=== PATIENT | female | born 1945 | race Caucasian/White ===

== ENCOUNTER 2016-10-14 19:01 | Emergency (ER) | payer MEDICARE ==
[2016-10-14 19:24] VITALS: TEMP 98.1
--- NOTE | 2016-10-14 20:09 | C.PDOC ---
History Of Present Illness 71 y/o female presents to ED with c/o dizziness and nausea. Patient was seen in this ER on 10/02/16 and had a full negative workup including a negative CT scan. Patient reports difficulty walking due to lightheadedness and dizziness. Otherwise, denies fever, chills, or vomiting. Time Seen by Provider: 10/14/16 20:06 Chief Complaint (Nursing): Dizziness/Lightheaded History Per: Patient History/Exam Limitations: no limitations Onset/Duration Of Symptoms: Days Current Symptoms Are (Timing): Still Present Seizure Or Post-ictal Symptoms: None Fall Associated With With Symptoms: No Past Medical History Reviewed: Historical Data, Nursing Documentation, Vital Signs Vital Signs: Last Vital Signs Temp 98.1 F 10/14/16 19:20 Pulse 71 10/14/16 21:55 Resp 18 10/14/16 21:55 BP 170/80 H 10/14/16 21:55 Pulse Ox 100 10/14/16 21:55 - Medical History PMH: No Chronic Diseases Family History: States: No Known Family Hx - Social History Hx Alcohol Use: No Hx Substance Use: No - Immunization History Hx Tetanus Toxoid Vaccination: No Hx Influenza Vaccination: No Hx Pneumococcal Vaccination: No Review Of Systems Constitutional: Negative for: Fever, Chills Cardiovascular: Negative for: Chest Pain Respiratory: Negative for: Cough Gastrointestinal: Positive for: Nausea. Negative for: Vomiting Neurological: Positive for: Dizziness. Negative for: Headache Physical Exam - Physical Exam Appears: Non-toxic, No Acute Distress Skin: Warm, Dry Head: Normacephalic Eye(s): bilateral: Normal Inspection (no nystagmus) Ear(s): Bilateral: Normal Oral Mucosa: Moist Neck: Supple Chest: Symmetrical Cardiovascular: Rhythm Regular Respiratory: No Rales, No Rhonchi, No Wheezing Gastrointestinal/Abdominal: Soft, No Tenderness Extremity: Normal ROM, Capillary Refill (< 2 sec.) Neurological/Psych: Oriented x3, Normal Speech, Normal Cognition, No Romberg ED Course And Treatment - Laboratory Results Result Diagrams: 10/14/16 21:21 10/14/16 21:21 ECG: Interpreted By Me, Viewed By Me ECG Rhythm: Sinus Rhythm (72), Nonspecific Changes O2 Sat by Pulse Oximetry: 99 Pulse Ox Interpretation: Normal Reevaluation Time: 22:52 Reassessment Condition: Improved Disposition Counseled Patient/Family Regarding: Studies Performed, Diagnosis, Need For Followup, Rx Given - Disposition Referrals: [facility] [Outside] [facility] [Outside] Goyo Metcalf MD [Staff Provider] - Marco A Fontenot MD [Staff Provider] - Disposition: HOME/ ROUTINE Disposition Time: 20:09 Condition: FAIR Prescriptions: Meclizine [Meclizine*] 25 mg PO Q6 #30 tab Ondansetron ODT [Zofran ODT] 1 odt PO BID PRN #10 odt PRN Reason: Nausea/Vomiting Instructions: Dizziness (ED), Vertigo (ED) Print Language: COMORAN - Clinical Impression Clinical Impression: Dizziness - Scribe Statement The provider has reviewed the documentation as recorded by the Kevibkanchan Valdes Provider Attestation: Provider Scribe Attestation: All medical record entries made by the Scribe were at my direction and personally dictated by me. I have reviewed the chart and agree that the record accurately reflects my personal performance of the history, physical exam, medical decision making, and the department course for this patient. I have also personally directed, reviewed, and agree with the discharge instructions and disposition.
[2016-10-14] MEDS ORDERED: Sodium Chloride 0.9% 500 ML IV ONE (21:16)
[2016-10-14 21:24] LABS: BASO % 0.2 % (0.0-2.0); EOS # 0.1 K/uL (0.0-0.7); EOS % 0.7 % (0.0-4.0); HEMATOCRIT 41.1 % (34.0-47.0); LYMPH # 1.1 K/uL (1.0-4.3); LYMPH % 12.4 % (20.0-40.0); MEAN CELL VOLUME 96.3 fL (81.0-99.0); MEAN CORPUSCULAR HEMOGLOBIN 32.5 pg (27.0-31.0); MEAN CORPUSCULAR HGB CONC 33.7 g/dL (33.0-37.0); MEAN PLATELET VOLUME 8.5 fL (7.2-11.7); MONO # 0.9 K/uL (0.0-0.8); MONO % 9.9 % (0.0-10.0); RED CELL DISTRIBUTION WIDTH 12.7 % (11.5-14.5); WHITE BLOOD COUNT 8.6 K/uL (4.8-10.8)
[2016-10-14 21:33] LABS: RBC URINE 9 /hpf (0-3); URINE BACTERIA RARE (<OCC); URINE BILIRUBIN NEGATIVE (NEGATIVE); URINE COLOR Yellow (YELLOW); URINE GLUCOSE (UA) NORMAL (Normal); URINE KETONE NEGATIVE (NEGATIVE); URINE PROTEIN NEGATIVE (NEGATIVE); URINE UROBILINOGEN NORMAL mg/dL (0.2-1.0); WBC URINE 5 /hpf (0-5)
[2016-10-14 21:34] LABS: CHLORIDE 101 mmol/L (98-107); SODIUM 142 mmol/L (132-148); URINE BLOOD TRACE (NEGATIVE); URINE LEUKOCYTE ESTERASE TRACE Leu/uL (Negative)
[2016-10-14 21:35] LABS: POTASSIUM 3.5 mmol/L (3.6-5.2)
[2016-10-14 21:37] LABS: ALB/GLOB RATIO 1.3 (1.0-2.1); ALKALINE PHOSPHATASE 99 U/L (38-126); AST/SGOT 28 U/L (14-36); BILIRUBIN,TOTAL 0.6 mg/dL (0.2-1.3); BLOOD UREA NITROGEN 10 mg/dL (7-17); CARBON DIOXIDE 25 mmol/L (22-30); GFR AFRICAN-AMERICAN > 60; GLUCOSE,RANDOM 106 mg/dL (65-105); TOTAL PROTEIN 7.4 g/dL (6.3-8.3)
[2016-10-14 21:38] LABS: ALT/SGPT 16 U/L (9-52); MAGNESIUM 1.9 mg/dL (1.6-2.3)
[2016-10-14 21:39] LABS: INR 1.1
[2016-10-14 21:55] VITALS: BP 170/80; PULSE 71; RESP 18
[2016-10-14 22:55] VITALS: O2SAT 99
== END 2016-10-14 22:55 | disposition home or self-care (01) ==
LOC: C.ER 19:01
DX: R42 Dizziness and giddiness (principal)
CPT/HCPCS: 80053; 81001; 83735; 85025; 85610; 85730; 96360; 99285; J7040

== ENCOUNTER 2018-11-22 18:27 | Inpatient (IN) | payer MEDICARE ==
[2018-11-22 18:37] VITALS: BMI 28.1
[2018-11-22] MEDS ORDERED: Sodium Chloride 0.9% 1,000 ML IV ONE (19:19)
--- NOTE | 2018-11-22 19:19 | C.PDOC ---
History Of Present Illness Patient presents to the ED c/o sudden onset RUQ abdominal pain associated with some nausea. Patient states pain is sharp, stabbing, non radiating. Patient denies fever, chills, diarrhea, rash, dysuria, hematuria, weakness, numbness. Time Seen by Provider: 11/22/18 19:19 Chief Complaint (Nursing): Abdominal Pain History Per: Patient Onset/Duration Of Symptoms: Sudden Onset Current Symptoms Are (Timing): Still Present Context: Other Severity: Severe Pain Scale Rating Of: 7 Location Of Pain/Discomfort: RUQ, Epigastric Radiation Of Pain To:: None Quality Of Discomfort: Sharp, Stabbing Associated Symptoms: Nausea. denies: Vomiting, Diarrhea, Urinary Symptoms Alleviating Factors: None Last Bowel Movement: Today Recent travel outside of the [place]: No Additional History Per: Patient Abnormal Vaginal Bleeding: No Past Medical History Reviewed: Historical Data, Nursing Documentation, Vital Signs Vital Signs: Last Vital Signs Temp 98.8 F 11/22/18 18:37 Pulse 90 11/22/18 18:37 Resp 18 11/22/18 18:37 BP 114/70 11/22/18 18:37 Pulse Ox 100 11/22/18 18:37 - Medical History PMH: No Chronic Diseases Surgical History: No Surg Hx Family History: States: Unknown Family Hx - Social History Hx Alcohol Use: No Hx Substance Use: No - Immunization History Hx Tetanus Toxoid Vaccination: No Hx Influenza Vaccination: No Hx Pneumococcal Vaccination: No Review Of Systems Constitutional: Negative for: Fever, Chills Cardiovascular: Negative for: Chest Pain Respiratory: Negative for: Shortness of Breath Gastrointestinal: Positive for: Nausea, Abdominal Pain. Negative for: Vomiting, Diarrhea Genitourinary: Negative for: Dysuria Musculoskeletal: Negative for: Back Pain Skin: Negative for: Rash Neurological: Negative for: Weakness, Numbness Physical Exam - Physical Exam Appears: Non-toxic, No Acute Distress Skin: Warm, Dry Head: Normacephalic Eye(s): bilateral: Normal Inspection Oral Mucosa: Moist Neck: Supple Chest: Symmetrical Cardiovascular: Rhythm Regular Respiratory: No Rales, No Rhonchi, No Wheezing Gastrointestinal/Abdominal: Soft, Tenderness (RUQ), No Guarding, No Rebound Back: No CVA Tenderness Extremity: No Tenderness Extremity: Bilateral: Atraumatic, Normal Color And Temperature, Normal ROM Pulses: Left Dorsalis Pedis: Normal, Right Dorsalis Pedis: Normal Neurological/Psych: Oriented x3, Normal Speech, Normal Cognition Gait: Steady ED Course And Treatment - Laboratory Results Result Diagrams: 11/22/18 19:34 11/22/18 19:34 ECG: Interpreted By Me, Viewed By Me O2 Sat by Pulse Oximetry: 100 (ON RA) Pulse Ox Interpretation: Normal - CT Scan/US CT abd/pelvis Other Rad Studies (CT/US): Read By Radiologist, Radiology Report Reviewed CT/US Interpretation: EXAM: CT Abdomen and Pelvis with IV contrast. CLINICAL HISTORY: Ruq pain. TECHNIQUE: Axial computed tomography images of the abdomen and pelvis with intravenous contrast. 0.00 mGy-cm. CONTRAST: With; OMNI 300/100ML. COMPARISON: None provided. FINDINGS: LUNG BASES: The lung bases appear clear. No pleural effusions are seen. LIVER: Unremarkable. GALLBLADDER AND BILE DUCTS: The gallbladder appears prominent in size. There is subtle pericholecystic edema present. These findings are suspicious for acalculous cholecystitis. No radioopaque gallstones are seen. No biliary ductal dilatation is evident. PANCREAS: Unremarkable. SPLEEN: Unremarkable. ADRENAL GLANDS: Unremarkable. KIDNEYS, URETERS, AND BLADDER: The kidneys appear within normal limits. A small 1.3 cm cyst arises from the anterior mid right renal pole. There is no hydronephrosis or hydroureter. No urinary calculi are seen. The urinary bladder appeared normal in size and configuration. STOMACH AND BOWEL: Unremarkable appearance of the stomach. No evidence of bowel obstruction. No evidence suggesting enteritis or colitis. There is diverticulosis coli noted; most prevalent in the lower descending, sigmoid and rectosigmoid regions without evidence of acute diverticulitis. APPENDIX: No evidence of acute appendicitis on CT examination. PERITONEUM: No free fluid. No free air. LYMPH NODES: No lymphadenopathy is evident. REPRODUCTIVE: Postmenopausal uterine atrophy is noted. Otherwise, unremarkable as visualized. VASCULATURE: No evidence of abdominal aortic aneurysm. Moderate atherosclerotic vascular plaquing is present. BONES: No aggressive appearing osseous lesion. No acute osseous pathology evident. There is evidence of degenerative disc disease at L5-S1. There is retrograde spondylolisthesis of L5 in relationship to L4 noted by an estimated 7.0 mm. IMPRESSION: 1. Prominent size of the gallbladder with subtle pericholecystic edema suggesting acute acalculous cholecystitis. 2. Diverticulosis coli noted without evidence of acute diverticulitis. 3. Degene rative disc disease at L5-S1. 4. Retrograde spondylolisthesis of L5 in relationship to L4 as described above. . Electronically signed on Nov 22, 2018 9:11:57 PM EDT by: Jeet Torres M.D., M.B.A., Certified By ABR. Fellowship Trained MRI and CT Specialist. due to her serious condition pt will need at least 2 days of in patient hospitalization Progress Note: Plan: - EKG. - Labs. - IV fluids. - protonix 40 mg IVP. - Toradol 15 mg IVP. - Zofran 4 mg IVP. - UA. spoke with surgery - will come and see the pt Disposition Discussed With Dr.: Rosa James Comment: accepted the pt on his service and took over the care at 9:25 PM Counseled Patient/Family Regarding: Studies Performed, Diagnosis - Disposition Disposition: HOSPITALIZED Disposition Time: 19:19 Condition: FAIR Forms: [employer] (Portuguese) - Clinical Impression Clinical Impression: Nausea, Abdominal pain, Acute pancreatitis, Acute acalculous cholecystitis - Scribe Statement The provider has reviewed the documentation as recorded by the Scribe Federico Arauz All medical record entries made by the Scribe were at my direction and personally dictated by me. I have reviewed the chart and agree that the record accurately reflects my personal performance of the history, physical exam, medical decision making, and the department course for this patient. I have also personally directed, reviewed, and agree with the discharge instructions and disposition. Decision To Admit - Pt Status Changed To: Hospital Disposition Of: Inpatient - Admit Certification Admit to Inpatient:: After my assessment, the patient will require hospitalization for at least two midnights. This is because of the severity of symptoms shown, intensity of services needed, and/or the medical risk in this patient being treated as an outpatient. - InPatient: Physician Admission Certification:: After my assessment, the patient will require hospitalization for at least two midnights. This is because of the severity of symptoms shown, intensity of services needed, and/or the medical risk in this patient being treated as an outpatient. - . Bed Request Type: Regular Admitting Physician: Rosa James Patient Diagnosis: Acute pancreatitis, Acute acalculous cholecystitis, Nausea, Abdominal pain
[2018-11-22 19:37] LABS: BASO % 0.2 % (0.0-2.0); HEMOGLOBIN 13.6 g/dL (11.0-16.0); LYMPH # 0.2 K/uL (1.0-4.3); LYMPH % 1.5 % (20.0-40.0); MEAN CELL VOLUME 97.1 fL (81.0-99.0); MONO # 0.8 K/uL (0.0-0.8); MONO % 5.1 % (0.0-10.0); NEUT % 93.2 % (50.0-75.0); PLATELET COUNT 236 K/uL (130-400); RBC 4.13 Mil/uL (3.80-5.20); RED CELL DISTRIBUTION WIDTH 13.4 % (11.5-14.5); WHITE BLOOD COUNT 16.1 K/uL (4.8-10.8)
[2018-11-22 19:46] LABS: INR 1.3; PROTHROMBIN TIME 14.2 SECONDS (9.7-12.2)
[2018-11-22] MEDS ORDERED: Piperacillin/Tazobact 3.375 gm 100 ML IVPB STA (19:46)
[2018-11-22 19:47] LABS: SQUAMOUS EPITHIAL 3 /hpf (0-5); URINE BACTERIA OCC (<OCC); URINE BILIRUBIN 2+ (NEGATIVE); URINE BLOOD 1+ (NEGATIVE); URINE CLARITY Clear (Clear); URINE COLOR Amber (YELLOW); URINE GLUCOSE (UA) NORMAL (Normal); URINE LEUKOCYTE ESTERASE NEG Leu/uL (Negative); URINE PROTEIN NEGATIVE (NEGATIVE)
[2018-11-22 19:49] LABS: ALB/GLOB RATIO 1.5 (1.0-2.1); ALBUMIN 4.2 g/dL (3.5-5.0); ALT/SGPT 169 U/L (9-52); AST/SGOT 248 U/L (14-36); BLOOD UREA NITROGEN 11 mg/dL (7-17); CALCIUM 9.4 mg/dl (8.6-10.4); GFR NON-AFRICAN AMERICAN > 60
[2018-11-22] MEDS ORDERED: Sodium Chloride 0.9% 1,000 ML ONE (19:56)
[2018-11-22 20:08] LABS: LIPASE 11425 U/L (23-300)
[2018-11-22] MEDS ORDERED: Iohexol 300 100 ML IJ ONE (20:08)
[2018-11-22] MEDS ORDERED: Piperacillin/Tazobact 3.375 gm 100 ML IVPB ONE (20:59)
[2018-11-22] MEDS ORDERED: Dextrose 5%/0.45% NS 1,000 ML IV ONE (21:24)
[2018-11-22 21:56] LABS: BANDS 5 % (0-2); LYMPHOCYTE 2 % (20-40); MONOCYTE 2 % (0-10); NEUTROPHIL 91 % (50-75); PLATELET ESTIMATE NORMAL (NORMAL); TOTAL CELLS COUNTED 100
[2018-11-22] MEDS ORDERED: Lactated Ringer's 1,000 ML IV ONE (23:02)
--- NOTE | 2018-11-23 00:18 | CP.PCM.CON ---
<Ethan Butler - Last Filed: 11/23/18 00:20> History of Present Illness - History of Present Illness History of Present Illness: Surgery Consult Note- Dr. Scherer Reason for Consult: Acute Cholecystitis, Pancreatitis 73F pmhx significant for hypotensive episodes, does not take medications at home presents to [facility] ED w/ Mid-Epigastric to RUQ abdominal pain for 1 day. Associated nausea, multiple episodes of non-bloody, non-bilious vomiting. Patient admits to having similar pain the the past initially started 2 years ago. Pain is worsened w/ fatty and [employer] foods. Denies: fevers, chills, chest pain, shortness of breath PMH: Stated above PSH: deneis ALL: nkda SocialHx: denies tobacco, etoh recreational drug use Review of Systems - Review of Systems All systems: reviewed and no additional remarkable complaints except - Constitutional Constitutional: As Per HPI Past Patient History - Infectious Disease Hx of Infectious Diseases: None - Past Social History Smoking Status: Never Smoked - CARDIAC Hx Hypotension: Yes - PSYCHIATRIC Hx Substance Use: No - SURGICAL HISTORY Hx Surgeries: No - ANESTHESIA Hx Anesthesia: No Hx Anesthesia Reactions: No Meds Allergies/Adverse Reactions: Allergies Allergy/AdvReac Type Severity Reaction Status Date / Time No Known Allergies Allergy Verified 06/28/15 15:33 - Medications Medications: Current Medications Dextrose/Sodium Chloride (Dextrose 5%/0.45% Ns 1000 Ml) 1,000 mls @ 200 mls/hr IV .Q5H ONE Stop: 11/23/18 02:23 Last Admin: 11/22/18 21:37 Dose: 200 mls/hr Lactated Ringer's (Lactated Ringer's) 1,000 mls @ 200 mls/hr IV .Q5H ONE Stop: 11/23/18 04:01 Piperacillin Sod/Tazobactam Sod (Zosyn 3.375 Gm Iv Premix) 3.375 gm in 50 mls @ 100 mls/hr IVPB Q6H LILIANA; Protocol Physical Exam - Constitutional Appears: Non-toxic, No Acute Distress - Head Exam Head Exam: ATRAUMATIC - Eye Exam Eye Exam: EOMI. absent: Scleral icterus - ENT Exam ENT Exam: Mucous Membranes Moist - Respiratory Exam Respiratory Exam: NORMAL BREATHING PATTERN. absent: Accessory Muscle Use, Respiratory Distress - Cardiovascular Exam Cardiovascular Exam: absent: Bradycardia, Tachycardia, +S1, +S2 - GI/Abdominal Exam GI & Abdominal Exam: Soft, Tenderness (tenderness to deep palpation in mid- epigastrum and RUQ) - Extremities Exam Extremities exam: Negative for: calf tenderness - Neurological Exam Neurological exam: Alert, Oriented x3 - Psychiatric Exam Psychiatric exam: Normal Affect - Skin Skin Exam: Intact, Warm Results - Vital Signs Recent Vital Signs: Last Vital Signs Temp 98.2 F 11/23/18 00:07 Pulse 92 H 11/23/18 00:07 Resp 20 11/23/18 00:07 BP 97/55 L 11/23/18 00:07 Pulse Ox 95 11/23/18 00:07 - Labs Result Diagrams: 11/22/18 19:34 11/22/18 19:34 Labs: Laboratory Results - last 24 hr 11/22/18 11/22/18 11/22/18 19:34 19:34 19:34 WBC 16.1 H D RBC 4.13 Hgb 13.6 Hct 40.1 MCV 97.1 MCH 33.0 H MCHC 34.0 RDW 13.4 Plt Count 236 MPV 8.0 Neut % (Auto) 93.2 H Lymph % (Auto) 1.5 L [place] % (Auto) 5.1 Eos % (Auto) 0.0 Baso % (Auto) 0.2 Neut # (Auto) 15.0 H Lymph # (Auto) 0.2 L [place] # (Auto) 0.8 Eos # (Auto) 0.0 Baso # (Auto) 0.0 Neutrophils % (Manual) 91 H Band Neutrophils % 5 H Lymphocytes % (Manual) 2 L Monocytes % (Manual) 2 Platelet Estimate Normal PT 14.2 H INR 1.3 APTT 31.0 Sodium 137 Potassium 4.2 Chloride 102 Carbon Dioxide 27 Anion Gap 12 BUN 11 Creatinine 0.7 Est GFR ( Amer) > 60 Est GFR (Non-Af Amer) > 60 Random Glucose 139 H D Calcium 9.4 Total Bilirubin 4.9 H AST 248 H ALT 169 H D Alkaline Phosphatase 217 H Total Protein 6.9 Albumin 4.2 Globulin 2.7 Albumin/Globulin Ratio 1.5 Lipase 58698 H Urine Color Urine Clarity Urine pH Ur Specific [place] Urine Protein Urine Glucose (UA) Urine Ketones Urine Blood Urine Nitrate Urine Bilirubin Urine Urobilinogen Ur Leukocyte Esterase Urine WBC (Auto) Urine RBC (Auto) Ur Squamous Epith Cells Urine Bacteria 11/22/18 19:41 WBC RBC Hgb Hct MCV MCH MCHC RDW Plt Count MPV Neut % (Auto) Lymph % (Auto) [place] % (Auto) Eos % (Auto) Baso % (Auto) Neut # (Auto) Lymph # (Auto) [place] # (Auto) Eos # (Auto) Baso # (Auto) Neutrophils % (Manual) Band Neutrophils % Lymphocytes % (Manual) Monocytes % (Manual) Platelet Estimate PT INR APTT Sodium Potassium Chloride Carbon Dioxide Anion Gap BUN Creatinine Est GFR ( Amer) Est GFR (Non-Af Amer) Random Glucose Calcium Total Bilirubin AST ALT Alkaline Phosphatase Total Protein Albumin Globulin Albumin/Globulin Ratio Lipase Urine Color [place] Urine Clarity Clear Urine pH 6.0 Ur Specific [place] 1.021 Urine Protein Negative Urine Glucose (UA) Normal Urine Ketones Negative Urine Blood 1+ H Urine Nitrate Positive H Urine Bilirubin 2+ H Urine Urobilinogen 4.0 H Ur Leukocyte Esterase Neg Urine WBC (Auto) 3 Urine RBC (Auto) 37 H Ur Squamous Epith Cells 3 Urine Bacteria Occ H Assessment & Plan - Assessment and Plan (Free Text) Assessment: 73F w/ Gallstone pancreatitis Plan: - NPO - Aggressive IVF - pain control PRN - f/u AM imaging and labs including MRCP - Plan for OR vs [facility] - d/w Dr. Monet Butler pgy2 <Fortino Richardson - Last Filed: 11/23/18 15:02> Meds - Medications Medications: Current Medications Piperacillin Sod/Tazobactam Sod (Zosyn 3.375 Gm Iv Premix) 3.375 gm in 50 mls @ 100 mls/hr IVPB Q6H LILIANA; Protocol Last Admin: 11/23/18 14:28 Dose: 100 mls/hr Lactated Ringer's (Lactated Ringer's) 1,000 mls @ 200 mls/hr IV .Q5H LILIANA Last Admin: 11/23/18 10:57 Dose: Not Given Ketorolac Tromethamine (Toradol) 15 mg IVP Q6 PRN PRN Reason: Pain, moderate (4-7) Last Admin: 11/23/18 13:12 Dose: 15 mg Pneumococcal Polyvalent Vaccine (Pneumovax 23 Vaccine) 0.5 ml IM .ONCE ONE Stop: 11/25/18 10:01 Results - Vital Signs Recent Vital Signs: Last Vital Signs Temp 98.3 F 11/23/18 07:00 Pulse 78 11/23/18 07:00 Resp 20 11/23/18 07:00 BP 106/58 L 11/23/18 07:00 Pulse Ox 97 11/23/18 07:00 - Labs Result Diagrams: 11/23/18 07:07 11/23/18 07:07 Labs: Laboratory Results - last 24 hr 11/22/18 11/22/18 11/22/18 19:34 19:34 19:34 WBC 16.1 H D RBC 4.13 Hgb 13.6 Hct 40.1 MCV 97.1 MCH 33.0 H MCHC 34.0 RDW 13.4 Plt Count 236 MPV 8.0 Neut % (Auto) 93.2 H Lymph % (Auto) 1.5 L [place] % (Auto) 5.1 Eos % (Auto) 0.0 Baso % (Auto) 0.2 Neut # (Auto) 15.0 H Lymph # (Auto) 0.2 L [place] # (Auto) 0.8 Eos # (Auto) 0.0 Baso # (Auto) 0.0 Neutrophils % (Manual) 91 H Band Neutrophils % 5 H Lymphocytes % (Manual) 2 L Monocytes % (Manual) 2 Platelet Estimate Normal Hypochromasia (manual) Poikilocytosis (manual Anisocytosis (manual) PT 14.2 H INR 1.3 APTT 31.0 Puncture Site pCO2 pO2 HCO3 ABG pH ABG Total CO2 ABG O2 Saturation ABG Base Excess Ranulfo Test ABG Potassium A-a O2 Difference Respiratory Index Glucose Lactate FiO2 Sodium 137 Potassium 4.2 Chloride 102 Carbon Dioxide 27 Anion Gap 12 BUN 11 Creatinine 0.7 Est GFR ( Amer) > 60 Est GFR (Non-Af Amer) > 60 Random Glucose 139 H D Calcium 9.4 Total Bilirubin 4.9 H AST 248 H ALT 169 H D Alkaline Phosphatase 217 H Total Protein 6.9 Albumin 4.2 Globulin 2.7 Albumin/Globulin Ratio 1.5 Lipase 46310 H Arterial Blood Potassium Urine Color Urine Clarity Urine pH Ur Specific [place] Urine Protein Urine Glucose (UA) Urine Ketones Urine Blood Urine Nitrate Urine Bilirubin Urine Urobilinogen Ur Leukocyte Esterase Urine WBC (Auto) Urine RBC (Auto) Ur Squamous Epith Cells Urine Bacteria Blood Type Antibody Screen 11/22/18 11/23/18 11/23/18 19:41 02:10 07:07 WBC 10.4 RBC 3.39 L Hgb 11.5 D Hct 32.9 L MCV 96.9 MCH 33.8 H MCHC 34.9 RDW 13.0 Plt Count 173 MPV 8.2 Neut % (Auto) 87.7 H Lymph % (Auto) 5.0 L [place] % (Auto) 7.1 Eos % (Auto) 0.1 Baso % (Auto) 0.1 Neut # (Auto) 9.1 H Lymph # (Auto) 0.5 L [place] # (Auto) 0.7 Eos # (Auto) 0.0 Baso # (Auto) 0.0 Neutrophils % (Manual) 83 H Band Neutrophils % 3 H Lymphocytes % (Manual) 8 L Monocytes % (Manual) 6 Platelet Estimate Normal Hypochromasia (manual) Slight Poikilocytosis (manual Slight Anisocytosis (manual) Slight PT INR APTT Puncture Site Rr pCO2 33 L pO2 81 HCO3 23.1 ABG pH 7.42 ABG Total CO2 22.4 ABG O2 Saturation 98.3 H ABG Base Excess -2.3 L Ranulfo Test Pos ABG Potassium 3.3 L A-a O2 Difference 27.0 Respiratory Index 0.3 Glucose 112 H Lactate 1.1 FiO2 21.0 Sodium 137.0 Potassium Chloride 106.0 Carbon Dioxide Anion Gap BUN Creatinine Est GFR ( Amer) Est GFR (Non-Af Amer) Random Glucose Calcium Total Bilirubin AST ALT Alkaline Phosphatase Total Protein Albumin Globulin Albumin/Globulin Ratio Lipase Arterial Blood Potassium 3.3 L Urine Color [place] Urine Clarity Clear Urine pH 6.0 Ur Specific [place] 1.021 Urine Protein Negative Urine Glucose (UA) Normal Urine Ketones Negative Urine Blood 1+ H Urine Nitrate Positive H Urine Bilirubin 2+ H Urine Urobilinogen 4.0 H Ur Leukocyte Esterase Neg Urine WBC (Auto) 3 Urine RBC (Auto) 37 H Ur Squamous Epith Cells 3 Urine Bacteria Occ H Blood Type Antibody Screen 11/23/18 11/23/18 11/23/18 07:07 07:07 14:25 WBC RBC Hgb Hct MCV MCH MCHC RDW Plt Count MPV Neut % (Auto) Lymph % (Auto) [place] % (Auto) Eos % (Auto) Baso % (Auto) Neut # (Auto) Lymph # (Auto) [place] # (Auto) Eos # (Auto) Baso # (Auto) Neutrophils % (Manual) Band Neutrophils % Lymphocytes % (Manual) Monocytes % (Manual) Platelet Estimate Hypochromasia (manual) Poikilocytosis (manual Anisocytosis (manual) PT INR APTT Puncture Site Lb pCO2 31 L pO2 74 L HCO3 23.2 ABG pH 7.44 ABG Total CO2 22.1 ABG O2 Saturation 97.1 ABG Base Excess -2.1 L Ran[place]fo Test Na ABG Potassium 3.1 L A-a O2 Difference 37.0 Respiratory Index 0.5 Glucose 81 Lactate 0.8 FiO2 21.0 Sodium 136 137.0 Potassium 3.5 L Chloride 106 110.0 H Carbon Dioxide 23 Anion Gap 10 BUN 12 Creatinine 0.8 Est GFR ( Amer) > 60 Est GFR (Non-Af Amer) > 60 Random Glucose 109 H D Calcium 8.4 L Total Bilirubin 6.2 H AST 145 H D ALT 125 H D Alkaline Phosphatase 177 H Total Protein 5.3 L Albumin 3.0 L D Globulin 2.3 Albumin/Globulin Ratio 1.3 Lipase Arterial Blood Potassium 3.1 L Urine Color Urine Clarity Urine pH Ur Specific [place] Urine Protein Urine Glucose (UA) Urine Ketones Urine Blood Urine Nitrate Urine Bilirubin Urine Urobilinogen Ur Leukocyte Esterase Urine WBC (Auto) Urine RBC (Auto) Ur Squamous Epith Cells Urine Bacteria Blood Type O POSITIVE Antibody Screen Negative Assessment & Plan - Assessment and Plan (Free Text) Plan: All medical record entries made by the resident were at my direction. I have reviewed the chart and agree that the record accurately reflects my personal performance of the history, physical exam, and medical decision making. Ms Flor has acute cholecystits, pancreatitis and biliary obstruction, with a WBC of 16. On CT scan, her gallbladder is markedly distended with wall thickening. Given her pancreatitis and biliary obstruction, she would benefit from decompression of her gallbladder. Depending on the severity of her pancreatits, will determine if she will benefit from ERCP.
[2018-11-23 02:16] LABS: ABG ALLEN TEST POS; ARTERIAL BLOOD GAS HCO3 23.1 mmol/L (21-28); ARTERIAL BLOOD GAS O2 SAT 98.3 % (95-98); ARTERIAL BLOOD GAS PCO2 33 mm/Hg (35-45); ARTERIAL BLOOD GAS PH 7.42 (7.35-7.45); ARTERIAL BLOOD GAS PO2 81 mm/Hg (80-100); ARTERIAL BLOOD GAS TCO2 22.4 mmol/L (22-28)
[2018-11-23] MEDS: Piperacill/Tazo 3.375gm in Dex 3.375 GM/50 ML BAG IVPB SCH ×4 (03:18→14:28)
[2018-11-23] MEDS: Lactated Ringer's 1,000 ML IV SCH ×4 (06:53→21:27)
[2018-11-23 07:17] LABS: BASO % 0.1 % (0.0-2.0); LYMPH # 0.5 K/uL (1.0-4.3); MEAN CORPUSCULAR HEMOGLOBIN 33.8 pg (27.0-31.0); MEAN PLATELET VOLUME 8.2 fL (7.2-11.7); RBC 3.39 Mil/uL (3.80-5.20)
[2018-11-23 07:24] LABS: EOS % 0.1 % (0.0-4.0); MEAN CELL VOLUME 96.9 fL (81.0-99.0); MEAN CORPUSCULAR HGB CONC 34.9 g/dL (33.0-37.0); MONO # 0.7 K/uL (0.0-0.8); MONO % 7.1 % (0.0-10.0); NEUT # 9.1 K/uL (1.8-7.0); NEUT % 87.7 % (50.0-75.0); PLATELET COUNT 173 K/uL (130-400); WHITE BLOOD COUNT 10.4 K/uL (4.8-10.8)
[2018-11-23 07:26] LABS: HEMOGLOBIN 11.5 g/dL (11.0-16.0)
[2018-11-23 07:35] LABS: ALB/GLOB RATIO 1.3 (1.0-2.1); ALT/SGPT 125 U/L (9-52); AST/SGOT 145 U/L (14-36); BLOOD UREA NITROGEN 12 mg/dL (7-17); CALCIUM 8.4 mg/dl (8.6-10.4); GFR NON-AFRICAN AMERICAN > 60
--- NOTE | 2018-11-23 08:58 | RAD ---
Date of service: 11/23/2018 HISTORY: Pre-Op COMPARISON: No prior. TECHNIQUE: Chest PA and lateral views FINDINGS: LUNGS: No consolidation bilaterally. Small nodular density under 1 cm appreciate the medial right apex as dense if not slightly more dense than bone compatible with calcified granuloma. PLEURA: No significant pleural effusion identified. No pneumothorax apparent. CARDIOVASCULAR: No aortic atherosclerotic calcification present. Cardiac size upper limits of normal. No pulmonary vascular congestion. OSSEOUS STRUCTURES: No significant abnormalities. VISUALIZED UPPER ABDOMEN: Elevated right hemidiaphragm, etiology indeterminate. OTHER FINDINGS: None. IMPRESSION: Elevated right hemidiaphragm of indeterminate etiology. No acute consolidation, pleural effusion or pneumothorax bilaterally. Medial right apical calcified granuloma noted. No pulmonary vascular congestion.
[2018-11-23] MEDS ORDERED: Gadodiamide 287 MG/ML VIAL (15ML) IV ONE (09:11)
--- NOTE | 2018-11-23 09:38 | CT ---
CT abdomen and pelvis HISTORY: Right upper quadrant abdominal pain. COMPARISON: None available. TECHNIQUE: Multiple contiguous axial images were performed through the abdomen and pelvis with the use of intravenous contrast. Subsequently, sagittal and coronal reformatted images were obtained. This CT exam was performed using one or more of the following dose reduction techniques: Automated exposure control, adjustment of the mA and/or kV according to patient size, and/or use of iterative reconstruction technique. Findings: Punctate 1-2 millimeter ground-glass nodules seen within the right lung on series 2, images 6 and 7. Minimal scattered atelectasis at the lung bases. No pleural or pericardial effusion. Mild intrahepatic biliary ductal dilatation. No pleural or pericardial effusion. Prominently distended gallbladder with associated gallbladder wall thickening and possible mild gallbladder wall edema. Prominent common bile duct measuring up to 5.6 millimeters. Spleen is preserved. Adrenal glands are preserved. Heterogeneity at the head of the pancreas, nonspecific. Upper abdominal bowel is grossly preserved. Right kidney: Midpole 1.6 centimeter low-attenuation right renal lesion demonstrating a Hounsfield unit attenuation of 12 suggestive for a possible cyst. Correlation with multiphasic contrast enhanced CT or MR may be helpful for further evaluation if clinically indicated. Left Kidney: No calculi or hydronephrosis. Urinary bladder is underdistended but otherwise grossly preserved. Uterus is preserved. Colonic diverticulosis with prominent diverticuli noted at the level of the sigmoid colon. Under distended portions of the ascending transverse and descending colon. Appendix is visualized and is within normal limits. Few shotty lymph nodes noted within the right upper quadrant of the abdominal mesentery. Atherosclerotic calcification and plaque in the aorta. Few shotty para-aortic and inguinal lymph nodes. Few shotty mesenteric nodes. Degenerative changes in the spine. Anterolisthesis of L4 on L5. Impression: 1. Prominently distended gallbladder with a suggestion of possible gallbladder wall thickening and or edema. This may represent an acute acalculous cholecystitis. Further evaluation with right upper quadrant abdominal ultrasound and/or nuclear medicine HIDA scan may be helpful if clinically indicated. 2. Colonic diverticulosis. Scattered areas of underdistention of the colon as described above. 3. Heterogeneity at the head of the pancreas, nonspecific. Clinical correlation. 4. Midpole 1.6 centimeter low-attenuation right renal lesion demonstrating a Hounsfield unit attenuation of 12 suggestive for a possible cyst. Correlation with multiphasic contrast enhanced CT or MR may be helpful for further evaluation if clinically indicated. Additional findings as above. A preliminary report was generated at 9:11 p.m. on 11/22/[address] Jeet Torres from [employer].
[2018-11-23 10:00] LABS: BANDS 3 % (0-2); LYMPHOCYTE 8 % (20-40); MONOCYTE 6 % (0-10); NEUTROPHIL 83 % (50-75); PLATELET ESTIMATE NORMAL (NORMAL); TOTAL CELLS COUNTED 100
[2018-11-23 10:01] LABS: ANISOCYTOSIS SLIGHT; HYPOCHROMIC SLIGHT; POIKILOCYTOSIS SLIGHT
--- NOTE | 2018-11-23 10:07 | US ---
Right upper quadrant abdominal ultrasound HISTORY: Right upper quadrant abdominal pain. COMPARISON: CT scan dated 11/22/2018 TECHNIQUE: Real-time sonography was performed through the right upper quadrant of the abdomen. Findings: Liver: 10.7 centimeters in length. Increased echogenicity of the hepatic parenchymal cortex suggestive for fatty infiltration versus hepatic parenchymal disease. Clinical correlation. Gallbladder: Cholelithiasis and sludge in the gallbladder. Normal wall thickness of 2.2 millimeters. No gross wall edema. Negative sonographic Edwards's sign. Common bile duct measures 5.8 millimeters, within normal limits. Limited visualization of the pancreas. Visualized aorta and IVC are grossly preserved. Right kidney: 9.1 x 4.6 x 4.8 centimeters. No calculi or hydronephrosis. Midpole hypoechoic cyst measuring 1.2 x 1.2 x 1.4 centimeters. Impression: 1. Gallbladder appears distended with associated cholelithiasis and sludge. No gross wall thickening or edema. Negative sonographic Edwards's sign. These findings may represent an atypical acute or chronic cholecystitis. If clinically indicated, this could be further evaluated with nuclear medicine HIDA scan. Clinical correlation. 2. Increased echogenicity of the hepatic parenchymal cortex suggestive for fatty infiltration versus hepatic parenchymal disease. Clinical correlation. 3. Limited visualization of the pancreas. 4. 1.4 centimeter right renal cyst/cystic lesion. A preliminary report was generated at 12:05 a.m. on 11/23/[address] Juan Manuel Mares from [employer].
[2018-11-23] MEDS ORDERED: Midazolam 2 MG/2 ML VIAL ONE (10:29)
--- NOTE | 2018-11-23 10:46 | PCM.SURG1 ---
Surgeon's Initial Post Op Note - Surgeon's Notes Surgeon: Mehran Pearce MD Obstetric Assistant: NONE Type of Anesthesia: Moderate Sedation{RN} Pre-Operative Diagnosis: Cholecystitis Operative Findings: Distended GB, sludge Post-Operative Diagnosis: Cholecystitis Operation Performed: US guided perc. cholecystostomy tube placement Specimen/Specimens Removed: 20 cc of bile Estimated Blood Loss: EBL {In ML}: 1 Blood Products Given: N/A Drains Used: Devon Tran Post-Op Condition: Fair Date of Surgery/Procedure: 11/23/18 Time of Surgery/Procedure: 10:45
--- NOTE | 2018-11-23 11:44 | CP.PCM.CON ---
<Sherif Guevara - Last Filed: 11/23/18 14:49> History of Present Illness - History of Present Illness History of Present Illness: GI Fellow PGY4, consult note. Lorene Flor is a very pleasant 73F from [facility] who presented with acute abdominal pain, nausea, vomiting. Patient states the pain was RUQ and epigastric, severe, sharp and started ~4am yesterday. The pain was initially 10/ 10 but now the pain very mild. She is avoiding foods. Patient states she had a similar attack 3 years ago in [facility] and was hospitalized. She was told she had gallstones at that time. She is otherwise healthy. On admission, patient had low fever, soft blood pressure and elevated WBC. She had evidence of cholestaisis on liver tests. U/S showed sludge and possible gallstones. PMHx - gallstones PSHx - none. No endoscopies. FMHx - Denies GI related cancers SocHx - Denies tobacco, alcohol. 12pt ROS completed and negative except for as above. Past Patient History - Infectious Disease Hx of Infectious Diseases: None - Past Medical History & Family History Past Medical History?: Yes - Past Social History Smoking Status: Never Smoked - CARDIAC Hx Hypotension: Yes - PULMONARY Hx Respiratory Disorders: No - NEUROLOGICAL Hx Neurological Disorder: No - HEENT Hx HEENT Problems: No - RENAL Hx Chronic Kidney Disease: No - ENDOCRINE/METABOLIC Hx Endocrine Disorders: No - HEMATOLOGICAL/ONCOLOGICAL Hx Blood Disorders: No - INTEGUMENTARY Hx Dermatological Problems: No - MUSCULOSKELETAL/RHEUMATOLOGICAL Hx Musculoskeletal Disorders: No Hx Falls: No - GASTROINTESTINAL Hx Gastrointestinal Disorders: No - GENITOURINARY/GYNECOLOGICAL Hx Genitourinary Disorders: No - PSYCHIATRIC Hx Substance Use: No - SURGICAL HISTORY Hx Surgeries: No - ANESTHESIA Hx Anesthesia: No Hx Anesthesia Reactions: No Meds Allergies/Adverse Reactions: Allergies Allergy/AdvReac Type Severity Reaction Status Date / Time No Known Allergies Allergy Verified 06/28/15 15:33 - Medications Medications: Current Medications Piperacillin Sod/Tazobactam Sod (Zosyn 3.375 Gm Iv Premix) 3.375 gm in 50 mls @ 100 mls/hr IVPB Q6H [facility]; Protocol Last Admin: 11/23/18 11:16 Dose: 100 mls/hr Lactated Ringer's (Lactated Ringer's) 1,000 mls @ 200 mls/hr IV .Q5H [facility] Last Admin: 11/23/18 10:57 Dose: Not Given Pneumococcal Polyvalent Vaccine (Pneumovax 23 Vaccine) 0.5 ml IM .ONCE ONE Stop: 11/25/18 10:01 Physical Exam - Constitutional Appears: Non-toxic, No Acute Distress - Head Exam Head Exam: ATRAUMATIC, NORMAL INSPECTION - ENT Exam ENT Exam: Mucous Membranes Moist, Normal Exam - Respiratory Exam Respiratory Exam: Clear to Auscultation Bilateral, NORMAL BREATHING PATTERN - Cardiovascular Exam Cardiovascular Exam: REGULAR RHYTHM, +S1, +S2 - GI/Abdominal Exam GI & Abdominal Exam: Hypoactive Bowel Sounds, Soft, Tenderness. absent: Distended, Guarding, Organomegaly Additional comments: Mild tender. Negative murphys signs. - Extremities Exam Extremities exam: Positive for: normal inspection. Negative for: pedal edema - Neurological Exam Neurological exam: Alert, CN II-XII Intact, Oriented x3 - Skin Skin Exam: Dry, Warm Results - Vital Signs Recent Vital Signs: Last Vital Signs Temp 98.3 F 11/23/18 07:00 Pulse 78 11/23/18 07:00 Resp 20 11/23/18 07:00 BP 106/58 L 11/23/18 07:00 Pulse Ox 97 11/23/18 07:00 - Labs Result Diagrams: 11/23/18 07:07 11/23/18 07:07 Labs: Laboratory Results - last 24 hr 11/22/18 11/22/18 11/22/18 19:34 19:34 19:34 WBC 16.1 H D RBC 4.13 Hgb 13.6 Hct 40.1 MCV 97.1 MCH 33.0 H MCHC 34.0 RDW 13.4 Plt Count 236 MPV 8.0 Neut % (Auto) 93.2 H Lymph % (Auto) 1.5 L [place] % (Auto) 5.1 Eos % (Auto) 0.0 Baso % (Auto) 0.2 Neut # (Auto) 15.0 H Lymph # (Auto) 0.2 L [place] # (Auto) 0.8 Eos # (Auto) 0.0 Baso # (Auto) 0.0 Neutrophils % (Manual) 91 H Band Neutrophils % 5 H Lymphocytes % (Manual) 2 L Monocytes % (Manual) 2 Platelet Estimate Normal Hypochromasia (manual) Poikilocytosis (manual Anisocytosis (manual) PT 14.2 H INR 1.3 APTT 31.0 Puncture Site pCO2 pO2 HCO3 ABG pH ABG Total CO2 ABG O2 Saturation ABG Base Excess Ranulfo Test ABG Potassium A-a O2 Difference Respiratory Index Glucose Lactate FiO2 Sodium 137 Potassium 4.2 Chloride 102 Carbon Dioxide 27 Anion Gap 12 BUN 11 Creatinine 0.7 Est GFR ( Amer) > 60 Est GFR (Non-Af Amer) > 60 Random Glucose 139 H D Calcium 9.4 Total Bilirubin 4.9 H AST 248 H ALT 169 H D Alkaline Phosphatase 217 H Total Protein 6.9 Albumin 4.2 Globulin 2.7 Albumin/Globulin Ratio 1.5 Lipase 24350 H Arterial Blood Potassium Urine Color Urine Clarity Urine pH Ur Specific Hawkins Urine Protein Urine Glucose (UA) Urine Ketones Urine Blood Urine Nitrate Urine Bilirubin Urine Urobilinogen Ur Leukocyte Esterase Urine WBC (Auto) Urine RBC (Auto) Ur Squamous Epith Cells Urine Bacteria Blood Type Antibody Screen 11/22/18 11/23/18 11/23/18 19:41 02:10 07:07 WBC 10.4 RBC 3.39 L Hgb 11.5 D Hct 32.9 L MCV 96.9 MCH 33.8 H MCHC 34.9 RDW 13.0 Plt Count 173 MPV 8.2 Neut % (Auto) 87.7 H Lymph % (Auto) 5.0 L [place] % (Auto) 7.1 Eos % (Auto) 0.1 Baso % (Auto) 0.1 Neut # (Auto) 9.1 H Lymph # (Auto) 0.5 L [place] # (Auto) 0.7 Eos # (Auto) 0.0 Baso # (Auto) 0.0 Neutrophils % (Manual) 83 H Band Neutrophils % 3 H Lymphocytes % (Manual) 8 L Monocytes % (Manual) 6 Platelet Estimate Normal Hypochromasia (manual) Slight Poikilocytosis (manual Slight Anisocytosis (manual) Slight PT INR APTT Puncture Site Rr pCO2 33 L pO2 81 HCO3 23.1 ABG pH 7.42 ABG Total CO2 22.4 ABG O2 Saturation 98.3 H ABG Base Excess -2.3 L Ranulfo Test Pos ABG Potassium 3.3 L A-a O2 Difference 27.0 Respiratory Index 0.3 Glucose 112 H Lactate 1.1 FiO2 21.0 Sodium 137.0 Potassium Chloride 106.0 Carbon Dioxide Anion Gap BUN Creatinine Est GFR ( Amer) Est GFR (Non-Af Amer) Random Glucose Calcium Total Bilirubin AST ALT Alkaline Phosphatase Total Protein Albumin Globulin Albumin/Globulin Ratio Lipase Arterial Blood Potassium 3.3 L Urine Color [place] Urine Clarity Clear Urine pH 6.0 Ur Specific Hawkins 1.021 Urine Protein Negative Urine Glucose (UA) Normal Urine Ketones Negative Urine Blood 1+ H Urine Nitrate Positive H Urine Bilirubin 2+ H Urine Urobilinogen 4.0 H Ur Leukocyte Esterase Neg Urine WBC (Auto) 3 Urine RBC (Auto) 37 H Ur Squamous Epith Cells 3 Urine Bacteria Occ H Blood Type Antibody Screen 11/23/18 11/23/18 07:07 07:07 WBC RBC Hgb Hct MCV MCH MCHC RDW Plt Count MPV Neut % (Auto) Lymph % (Auto) [place] % (Auto) Eos % (Auto) Baso % (Auto) Neut # (Auto) Lymph # (Auto) [place] # (Auto) Eos # (Auto) Baso # (Auto) Neutrophils % (Manual) Band Neutrophils % Lymphocytes % (Manual) Monocytes % (Manual) Platelet Estimate Hypochromasia (manual) Poikilocytosis (manual Anisocytosis (manual) PT INR APTT Puncture Site pCO2 pO2 HCO3 ABG pH ABG Total CO2 ABG O2 Saturation ABG Base Excess Ranulfo Test ABG Potassium A-a O2 Difference Respiratory Index Glucose Lactate FiO2 Sodium 136 Potassium 3.5 L Chloride 106 Carbon Dioxide 23 Anion Gap 10 BUN 12 Creatinine 0.8 Est GFR ( Amer) > 60 Est GFR (Non-Af Amer) > 60 Random Glucose 109 H D Calcium 8.4 L Total Bilirubin 6.2 H AST 145 H D ALT 125 H D Alkaline Phosphatase 177 H Total Protein 5.3 L Albumin 3.0 L D Globulin 2.3 Albumin/Globulin Ratio 1.3 Lipase Arterial Blood Potassium Urine Color Urine Clarity Urine pH Ur Specific Hawkins Urine Protein Urine Glucose (UA) Urine Ketones Urine Blood Urine Nitrate Urine Bilirubin Urine Urobilinogen Ur Leukocyte Esterase Urine WBC (Auto) Urine RBC (Auto) Ur Squamous Epith Cells Urine Bacteria Blood Type O POSITIVE Antibody Screen Negative Assessment & Plan - Assessment and Plan (Free Text) Assessment: #Acute gallstone pancreatitis PLAN: -CT, U/S reviewed. GB is distended with sludge and gallstones. CBD is normal, 0.6. -s/p perc cholecystostomy tube 11/23/18 -T. bili elevated this AM -MRI/MRCP results PENDING -Patient will likely benefit from EUS/ERCP followed by estrellita majano on this admission. Will hold off until MRCP/MRI results return. -Her risk of recurrence is high if gallbladder not removed and this was explained to the patient. -Urgent ERCP was considered earlier as she was having symptoms of sepsis, however she is doing well clinically at this time after fluid resuscitation and broad Abx. -NPO -Follow up surgical recs. -IVFs currently continuous LR at 200cc/hr. Continue to monitor and reduce as clinically indicated. Case discussed with Dr. Mora, see attestation. - Date & Time Date: 11/23/18 Time: 11:46 <Wilder Mora - Last Filed: 11/23/18 18:46> Meds - Medications Medications: Current Medications Lactated Ringer's (Lactated Ringer's) 1,000 mls @ 200 mls/hr IV .Q5H [facility] Last Admin: 11/23/18 10:57 Dose: Not Given Piperacillin Sod/Tazobactam Sod (Zosyn 2.25 Gm Iv Premix) 2.25 gm in 50 mls @ 100 mls/hr IVPB Q6H [facility]; Protocol Ketorolac Tromethamine (Toradol) 15 mg IVP Q6 PRN PRN Reason: Pain, moderate (4-7) Last Admin: 11/23/18 13:12 Dose: 15 mg Pneumococcal Polyvalent Vaccine (Pneumovax 23 Vaccine) 0.5 ml IM .ONCE ONE Stop: 11/25/18 10:01 Results - Vital Signs Recent Vital Signs: Last Vital Signs Temp 99.4 F 11/23/18 15:15 Pulse 96 H 11/23/18 15:15 Resp 20 11/23/18 15:15 BP 111/71 11/23/18 15:15 Pulse Ox 93 L 11/23/18 15:15 - Labs Result Diagrams: 11/23/18 07:07 11/23/18 07:07 Labs: Laboratory Results - last 24 hr 11/22/18 11/22/18 11/22/18 19:34 19:34 19:34 WBC 16.1 H D RBC 4.13 Hgb 13.6 Hct 40.1 MCV 97.1 MCH 33.0 H MCHC 34.0 RDW 13.4 Plt Count 236 MPV 8.0 Neut % (Auto) 93.2 H Lymph % (Auto) 1.5 L [place] % (Auto) 5.1 Eos % (Auto) 0.0 Baso % (Auto) 0.2 Neut # (Auto) 15.0 H Lymph # (Auto) 0.2 L [place] # (Auto) 0.8 Eos # (Auto) 0.0 Baso # (Auto) 0.0 Neutrophils % (Manual) 91 H Band Neutrophils % 5 H Lymphocytes % (Manual) 2 L Monocytes % (Manual) 2 Platelet Estimate Normal Hypochromasia (manual) Poikilocytosis (manual Anisocytosis (manual) PT 14.2 H INR 1.3 APTT 31.0 Puncture Site pCO2 pO2 HCO3 ABG pH ABG Total CO2 ABG O2 Saturation ABG Base Excess Ranulfo Test ABG Potassium A-a O2 Difference Respiratory Index Glucose Lactate FiO2 Sodium 137 Potassium 4.2 Chloride 102 Carbon Dioxide 27 Anion Gap 12 BUN 11 Creatinine 0.7 Est GFR ( Amer) > 60 Est GFR (Non-Af Amer) > 60 Random Glucose 139 H D Calcium 9.4 Total Bilirubin 4.9 H AST 248 H ALT 169 H D Alkaline Phosphatase 217 H Total Protein 6.9 Albumin 4.2 Globulin 2.7 Albumin/Globulin Ratio 1.5 Lipase 01674 H Arterial Blood Potassium Urine Color Urine Clarity Urine pH Ur Specific Hawkins Urine Protein Urine Glucose (UA) Urine Ketones Urine Blood Urine Nitrate Urine Bilirubin Urine Urobilinogen Ur Leukocyte Esterase Urine WBC (Auto) Urine RBC (Auto) Ur Squamous Epith Cells Urine Bacteria Blood Type Antibody Screen 11/22/18 11/23/18 11/23/18 19:41 02:10 07:07 WBC 10.4 RBC 3.39 L Hgb 11.5 D Hct 32.9 L MCV 96.9 MCH 33.8 H MCHC 34.9 RDW 13.0 Plt Count 173 MPV 8.2 Neut % (Auto) 87.7 H Lymph % (Auto) 5.0 L [place] % (Auto) 7.1 Eos % (Auto) 0.1 Baso % (Auto) 0.1 Neut # (Auto) 9.1 H Lymph # (Auto) 0.5 L [place] # (Auto) 0.7 Eos # (Auto) 0.0 Baso # (Auto) 0.0 Neutrophils % (Manual) 83 H Band Neutrophils % 3 H Lymphocytes % (Manual) 8 L Monocytes % (Manual) 6 Platelet Estimate Normal Hypochromasia (manual) Slight Poikilocytosis (manual Slight Anisocytosis (manual) Slight PT INR APTT Puncture Site Rr pCO2 33 L pO2 81 HCO3 23.1 ABG pH 7.42 ABG Total CO2 22.4 ABG O2 Saturation 98.3 H ABG Base Excess -2.3 L Ranulfo Test Pos ABG Potassium 3.3 L A-a O2 Difference 27.0 Respiratory Index 0.3 Glucose 112 H Lactate 1.1 FiO2 21.0 Sodium 137.0 Potassium Chloride 106.0 Carbon Dioxide Anion Gap BUN Creatinine Est GFR ( Amer) Est GFR (Non-Af Amer) Random Glucose Calcium Total Bilirubin AST ALT Alkaline Phosphatase Total Protein Albumin Globulin Albumin/Globulin Ratio Lipase Arterial Blood Potassium 3.3 L Urine Color [place] Urine Clarity Clear Urine pH 6.0 Ur Specific Hawkins 1.021 Urine Protein Negative Urine Glucose (UA) Normal Urine Ketones Negative Urine Blood 1+ H Urine Nitrate Positive H Urine Bilirubin 2+ H Urine Urobilinogen 4.0 H Ur Leukocyte Esterase Neg Urine WBC (Auto) 3 Urine RBC (Auto) 37 H Ur Squamous Epith Cells 3 Urine Bacteria Occ H Blood Type Antibody Screen 11/23/18 11/23/18 11/23/18 07:07 07:07 14:25 WBC RBC Hgb Hct MCV MCH MCHC RDW Plt Count MPV Neut % (Auto) Lymph % (Auto) [place] % (Auto) Eos % (Auto) Baso % (Auto) Neut # (Auto) Lymph # (Auto) [place] # (Auto) Eos # (Auto) Baso # (Auto) Neutrophils % (Manual) Band Neutrophils % Lymphocytes % (Manual) Monocytes % (Manual) Platelet Estimate Hypochromasia (manual) Poikilocytosis (manual Anisocytosis (manual) PT INR APTT Puncture Site Lb pCO2 31 L pO2 74 L HCO3 23.2 ABG pH 7.44 ABG Total CO2 22.1 ABG O2 Saturation 97.1 ABG Base Excess -2.1 L Ranulfo Test Na ABG Potassium 3.1 L A-a O2 Difference 37.0 Respiratory Index 0.5 Glucose 81 Lactate 0.8 FiO2 21.0 Sodium 136 137.0 Potassium 3.5 L Chloride 106 110.0 H Carbon Dioxide 23 Anion Gap 10 BUN 12 Creatinine 0.8 Est GFR ( Amer) > 60 Est GFR (Non-Af Amer) > 60 Random Glucose 109 H D Calcium 8.4 L Total Bilirubin 6.2 H AST 145 H D ALT 125 H D Alkaline Phosphatase 177 H Total Protein 5.3 L Albumin 3.0 L D Globulin 2.3 Albumin/Globulin Ratio 1.3 Lipase Arterial Blood Potassium 3.1 L Urine Color Urine Clarity Urine pH Ur Specific Hawkins Urine Protein Urine Glucose (UA) Urine Ketones Urine Blood Urine Nitrate Urine Bilirubin Urine Urobilinogen Ur Leukocyte Esterase Urine WBC (Auto) Urine RBC (Auto) Ur Squamous Epith Cells Urine Bacteria Blood Type O POSITIVE Antibody Screen Negative Attending/Attestation - Attestation I have personally seen and examined this patient.: Yes I have fully participated in the care of the patient.: Yes I have reviewed all pertinent clinical information: Yes Notes (Text): 11/23/18 18:42 I have seen and examined patient with GI fellow. Agree with above documentation with the following additions. In brief, this is a 73 year old female with history of cholelithiasis who presents to hospital with complaint of sudden onset abdominal pain which started yesterday. Prior to this she was in usual state of health. She reports sharp epigastric pain, 10/10 intensity radiating to RUQ and was associated with nausea and non-bloody emesis. She reports a similar episode 3 years ago in [facility] which was attributed to gallstones. She otherwise denies fever/chills, weight loss, rectal bleeding, jaundice, pruritis, or change in bowel habits. No prior endoscopic evaluation. Cholelithiasis Abdominal pain Gallstone pancreatitis Acute cholecystitis Transaminitis - NPO - Continue with antibiotic therapy - MRCP imaging reviewed by me showing normal caliber CBD, thickened GB wall - Follow up blood cultures - Patient s/p PTC drain placement as requested by surgical team, follow up recommendations - Continue to monitor LFTs - Continue with IVF hydration therapy, supportive care - Patient will eventually require cholecystectomy, currently no planned GI intervention, will continue to monitor patient clinical course
--- NOTE | 2018-11-23 12:08 | MRI ---
Date of service: 11/23/2018 PROCEDURE: Magnetic Resonance Cholangiopancreatography HISTORY: COMPARISON: None available. TECHNIQUE: Multiplanar, multisequence MR images of the abdomen were obtained, including heavily T2 weighted MRCP images of the biliary system. Rotating maximum intensity projection images of the biliary system were generated. FINDINGS: MRCP: The common bile duct is of a normal caliber. No evidence of choledocholithiasis. No intrahepatic biliary ductal dilatation. LIVER: Unremarkable. GALLBLADDER: Diffusely thickened wall. No yeny pericholecystic fluid. No evidence of cholelithiasis. SPLEEN: Unremarkable. PANCREAS: No mass or ductal dilatation. There is trace fluid/edema seen about the pancreatic head suggesting possible focal pancreatitis. Correlate clinically. ADRENALS: Unremarkable. KIDNEYS: 12 mm mid right renal cortical cyst. No other mass identified. No hydronephrosis. AORTA: No aneurysm. ASCITES: Trace fluid about the liver common nonspecific. No generalized ascites. OTHER FINDINGS: None. IMPRESSION: Possible focal pancreatitis of the pancreatic head. Nonspecific mural thickening of the gallbladder. No evidence of biliary obstruction. No evidence of choledocholithiasis.
[2018-11-23 14:28] LABS: ARTERIAL BLOOD GAS HCO3 23.2 mmol/L (21-28); ARTERIAL BLOOD GAS O2 SAT 97.1 % (95-98); ARTERIAL BLOOD GAS PCO2 31 mm/Hg (35-45); ARTERIAL BLOOD GAS PH 7.44 (7.35-7.45); ARTERIAL BLOOD GAS PO2 74 mm/Hg (80-100); ARTERIAL BLOOD GAS TCO2 22.1 mmol/L (22-28)
--- NOTE | 2018-11-23 18:30 | CARD ---
APPROVED REPORT Date of service: 11/22/2018 EKG Measurement Heart [id number] ID [id number] <Conclusion> Sinus tachycardia Otherwise normal ECG
[2018-11-23] MEDS: Piperacill/Tazo 2.25gm in Dex 2.25 GM/50 ML BAG IVPB SCH (21:28)
--- NOTE | 2018-11-24 02:27 | HP ---
HISTORY OF PRESENT ILLNESS: This is a 73-year-old female with no significant past medical history, not on any medication, presented to emergency room with upper abdominal pain associated with nausea and vomiting. Pain has been progressive over the last two days prior to admission. The patient was evaluated in the emergency room, and she was found to have white blood cell count of 16,000, lipase of 11,425 and total bilirubin of 4.9 and elevated liver enzymes 248 and 169. After the patient was evaluated in the emergency room, the patient was admitted for further management. The patient denied to have any similar episode before. Denied to drink alcohol. Other review of systems is negative. ALLERGIES: NO KNOWN ALLERGY. MEDICATIONS: None. PAST MEDICAL HISTORY: None significant. SOCIAL HISTORY: No history of smoking, EtOH or substance abuse. FAMILY HISTORY: Not contributory. PHYSICAL EXAMINATION: GENERAL: The patient is in bed, not in any cardiopulmonary distress. VITAL SIGNS: With a blood pressure of 106/58, temperature 98.3, respiratory rate 20 and pulse 78. HEENT: Pupils equal and reactive to light. Normal-appearing mucosa of the conjunctivae, oropharynx and nasal membrane mucosa. NECK: Supple. No JVD. No carotid bruit. No lymph node. No thyromegaly. CHEST AND LUNGS: Bilateral symmetrical expansion. Good air exchange. No rales. No rhonchi. CARDIOVASCULAR SYSTEM: PMI not localized. S1 and S2. No additional sounds. ABDOMEN: Normoactive bowel sounds. Positive tenderness in the epigastric area. No rebound tenderness. No organomegaly. No masses. EXTREMITIES: No cyanosis. No clubbing. No edema. CENTRAL NERVOUS SYSTEM: Alert, awake, oriented x2. No neurological deficits could be appreciated. LABORATORY DATA: Blood work again showed total bilirubin of 4.9 that went up to 6.2 and elevated lipase. ASSESSMENT: Acute pancreatitis, likely hepatocellular jaundice secondary to calculous cholecystitis. PLAN: Abdominal ultrasound. GI consult. Surgical consult. We will start the patient on Rocephin to treat urinary tract infection with positive nitrite. Rosa James MD
[2018-11-24] MEDS: Piperacill/Tazo 2.25gm in Dex 2.25 GM/50 ML BAG IVPB SCH (02:34)
[2018-11-24] MEDS: Lactated Ringer's 1,000 ML IV SCH ×2 (02:35→08:19)
[2018-11-24] MEDS ORDERED: Piperacill/Tazo 3.375gm in Dex 3.375 GM/50 ML BAG IVPB SCH (05:00)
--- NOTE | 2018-11-24 05:00 | CP.PCM.PN ---
<Shmuel Ornelas - Last Filed: 11/24/18 05:38> Subjective - Date & Time of Evaluation Date of Evaluation: 11/24/18 Time of Evaluation: 05:39 - Subjective Subjective: HBP Surgery Note for Dr. Freeman Patient seen and examined at bedside. No acute event overnight. Patient is s/p IR cholecystotomy tube POD#1. There has been 375 cc/24hrs of bilious output. Patient states original pain has improed but has discomfort from the tube now. Denies fever/chills or nausea/vomiting. Patient remains NPO. Objective - Vital Signs/Intake and Output Vital Signs (last 24 hours): Temp Pulse Resp BP Pulse Ox 98.6 F 90 20 109/55 L 94 L 11/24/18 00:00 11/24/18 00:00 11/24/18 00:00 11/24/18 00:00 11/24/18 00:00 Intake and Output: 11/23/18 11/24/18 18:59 06:59 Intake Total 2000 1600 Output Total 75 200 Balance 1925 1400 - Medications Medications: Current Medications Lactated Ringer's (Lactated Ringer's) 1,000 mls @ 200 mls/hr IV .Q5H [facility] Last Admin: 11/24/18 02:35 Dose: 200 mls/hr Piperacillin Sod/Tazobactam Sod (Zosyn 3.375 Gm Iv Premix) 3.375 gm in 50 mls @ 100 mls/hr IVPB Q6H [facility]; Protocol Ketorolac Tromethamine (Toradol) 15 mg IVP Q6 PRN PRN Reason: Pain, moderate (4-7) Last Admin: 11/23/18 13:12 Dose: 15 mg Pneumococcal Polyvalent Vaccine (Pneumovax 23 Vaccine) 0.5 ml IM .ONCE ONE Stop: 11/25/18 10:01 - Labs Labs: 11/23/18 07:07 11/23/18 07:07 PT 14.2 SECONDS (9.7-12.2) H 11/22/18 19:34 INR 1.3 11/22/18 19:34 APTT 31.0 SECONDS (21-34) 11/22/18 19:34 - Constitutional Appears: No Acute Distress - Head Exam Head Exam: ATRAUMATIC, NORMOCEPHALIC - Eye Exam Eye Exam: EOMI, Normal appearance Pupil Exam: PERRL - ENT Exam ENT Exam: Mucous Membranes Moist - Respiratory Exam Respiratory Exam: NORMAL BREATHING PATTERN - Cardiovascular Exam Cardiovascular Exam: REGULAR RHYTHM - GI/Abdominal Exam GI & Abdominal Exam: Soft, Tenderness (epigastric), Normal Bowel Sounds. absent: Distended, Firm, Guarding, Rigid, Rebound Additional comments: s/p cholecystotomy tube - Extremities Exam Extremities Exam: Normal Capillary Refill - Back Exam Back Exam: absent: CVA tenderness (L), CVA tenderness (R) - Neurological Exam Neurological Exam: Alert, Awake - Psychiatric Exam Psychiatric exam: Normal Affect, Normal Mood - Skin Skin Exam: Dry, Warm Assessment and Plan - Assessment and Plan (Free Text) Assessment: 73F who presents with gallstone pancreatitis s/p IR cholecystotomy tube POD#1 Plan: -CLD if ok with GI -Pain control -Anti-emetics PRN -Aggressive IVF hydration -Strict I's & O's -Monitor LFTs -Monitor base deficit -Will plan for lap cholecystectomy once pancreatitis resolves -Further recommendations as per Dr. Ellington PGY2 <Fortino Richardson - Last Filed: 11/24/18 15:26> Objective - Vital Signs/Intake and Output Vital Signs (last 24 hours): Temp Pulse Resp BP Pulse Ox 98.3 F 83 20 105/64 97 11/24/18 07:44 11/24/18 07:44 11/24/18 07:44 11/24/18 07:44 11/24/18 07:44 Intake and Output: 11/24/18 11/24/18 06:59 18:59 Intake Total 3200 Output Total 300 Balance 2900 - Medications Medications: Current Medications Docusate Sodium (Colace) 100 mg PO BID [facility] Last Admin: 11/24/18 10:00 Dose: 100 mg Piperacillin Sod/Tazobactam Sod (Zosyn 3.375 Gm Iv Premix) 3.375 gm in 50 mls @ 100 mls/hr IVPB Q6H [facility]; Protocol Last Admin: 11/24/18 09:59 Dose: 100 mls/hr Ibuprofen (Motrin Tab) 400 mg PO Q6H PRN PRN Reason: Pain, Mild (1-3) Morphine Sulfate (Morphine) 1 mg IVP Q4 PRN PRN Reason: Pain, severe (8-10) Pneumococcal Polyvalent Vaccine (Pneumovax 23 Vaccine) 0.5 ml IM .ONCE ONE Stop: 11/25/18 10:01 Sennosides (Senokot Tab) 8.6 mg PO DAILY [facility] Last Admin: 11/24/18 10:00 Dose: 8.6 mg - Labs Labs: 11/24/18 07:31 11/24/18 07:31 PT 14.2 SECONDS (9.7-12.2) H 11/22/18 19:34 INR 1.3 11/22/18 19:34 APTT 31.0 SECONDS (21-34) 11/22/18 19:34 Assessment and Plan - Assessment and Plan (Free Text) Plan: All medical record entries made by the resident were at my direction. I have reviewed the chart and agree that the record accurately reflects my personal performance of the history, physical exam, and medical decision making. On schedule for lap cholecystectomy for tomorrow
[2018-11-24 07:42] LABS: BASO % 0.2 % (0.0-2.0); EOS % 0.7 % (0.0-4.0); HEMOGLOBIN 10.9 g/dL (11.0-16.0); LYMPH # 0.6 K/uL (1.0-4.3); LYMPH % 11.8 % (20.0-40.0); MEAN CELL VOLUME 97.3 fL (81.0-99.0); MEAN CORPUSCULAR HEMOGLOBIN 33.6 pg (27.0-31.0); MEAN CORPUSCULAR HGB CONC 34.6 g/dL (33.0-37.0); MEAN PLATELET VOLUME 8.5 fL (7.2-11.7); MONO # 0.4 K/uL (0.0-0.8); MONO % 8.3 % (0.0-10.0); NEUT # 4.3 K/uL (1.8-7.0); RBC 3.25 Mil/uL (3.80-5.20); RED CELL DISTRIBUTION WIDTH 13.1 % (11.5-14.5); WHITE BLOOD COUNT 5.4 K/uL (4.8-10.8)
[2018-11-24 08:06] LABS: ALB/GLOB RATIO 1.2 (1.0-2.1); ALBUMIN 2.7 g/dL (3.5-5.0); ALT/SGPT 77 U/L (9-52); AST/SGOT 65 U/L (14-36); BLOOD UREA NITROGEN 11 mg/dL (7-17); CALCIUM 8.2 mg/dl (8.6-10.4); GFR NON-AFRICAN AMERICAN > 60; HDL CHOLESTEROL 49 mg/dL (30-70)
[2018-11-24 08:14] LABS: LDL CHOLESTEROL 56 mg/dL (0-129)
--- NOTE | 2018-11-24 08:44 | CP.PCM.PN ---
<Hector Guevarahan - Last Filed: 11/24/18 08:41> Subjective - Date & Time of Evaluation Date of Evaluation: 11/24/18 Time of Evaluation: 08:41 - Subjective Subjective: No acute events overnight. Patient reports much improved abdominal pain. Denies F/N/V. Requesting food. Objective - Vital Signs/Intake and Output Vital Signs (last 24 hours): Temp Pulse Resp BP Pulse Ox 98.3 F 83 20 105/64 97 11/24/18 07:44 11/24/18 07:44 11/24/18 07:44 11/24/18 07:44 11/24/18 07:44 Intake and Output: 11/24/18 11/24/18 06:59 18:59 Intake Total 3200 Output Total 300 Balance 2900 - Medications Medications: Current Medications Docusate Sodium (Colace) 100 mg PO BID [facility] Piperacillin Sod/Tazobactam Sod (Zosyn 3.375 Gm Iv Premix) 3.375 gm in 50 mls @ 100 mls/hr IVPB Q6H [facility]; Protocol Ibuprofen (Motrin Tab) 400 mg PO Q6H PRN PRN Reason: Pain, Mild (1-3) Morphine Sulfate (Morphine) 1 mg IVP Q4 PRN PRN Reason: Pain, severe (8-10) Pneumococcal Polyvalent Vaccine (Pneumovax 23 Vaccine) 0.5 ml IM .ONCE ONE Stop: 11/25/18 10:01 Sennosides (Senokot Tab) 8.6 mg PO DAILY [facility] - Labs Labs: 11/24/18 07:31 11/24/18 07:31 PT 14.2 SECONDS (9.7-12.2) H 11/22/18 19:34 INR 1.3 11/22/18 19:34 APTT 31.0 SECONDS (21-34) 11/22/18 19:34 - Constitutional Appears: Non-toxic, No Acute Distress - Respiratory Exam Respiratory Exam: Clear to Ausculation Bilateral, NORMAL BREATHING PATTERN - Cardiovascular Exam Cardiovascular Exam: REGULAR RHYTHM, +S1, +S2 - GI/Abdominal Exam GI & Abdominal Exam: Soft, Normal Bowel Sounds. absent: Tenderness Additional comments: Bile drain with normal appearing brown/green fluid. Reported 375cc output last 24hrs - Extremities Exam Extremities Exam: Normal Inspection. absent: Pedal Edema - Neurological Exam Neurological Exam: Alert, Awake, Oriented x3 - Psychiatric Exam Psychiatric exam: Normal Affect, Normal Mood - Skin Skin Exam: Normal Color, Warm Assessment and Plan - Assessment and Plan (Free Text) Assessment: #Acute gallstone pancreatitis PLAN: -CT, U/S reviewed. GB is distended with sludge and gallstones. CBD is normal, 0.6. -MRCP was negative for choledocolithiasis, normal caliber CBD. -s/p perc cholecystostomy tube 11/23/18 -T. bili trending down -No planned EUS/ERCP at this time. Recommend IOC during cholecystectomy. -Her risk of recurrence is high if gallbladder not removed and this was explained to the patient. -FLD -Follow up surgical recs. -IVF discontinued. Restart if not tolerating diet. Case discussed with Dr. Mora, see attestation. <Wilder Mora - Last Filed: 11/24/18 10:20> Objective - Vital Signs/Intake and Output Vital Signs (last 24 hours): Temp Pulse Resp BP Pulse Ox 98.3 F 83 20 105/64 97 11/24/18 07:44 11/24/18 07:44 11/24/18 07:44 11/24/18 07:44 11/24/18 07:44 Intake and Output: 11/24/18 11/24/18 06:59 18:59 Intake Total 3200 Output Total 300 Balance 2900 - Medications Medications: Current Medications Docusate Sodium (Colace) 100 mg PO BID [facility] Last Admin: 11/24/18 10:00 Dose: 100 mg Piperacillin Sod/Tazobactam Sod (Zosyn 3.375 Gm Iv Premix) 3.375 gm in 50 mls @ 100 mls/hr IVPB Q6H [facility]; Protocol Last Admin: 11/24/18 09:59 Dose: 100 mls/hr Ibuprofen (Motrin Tab) 400 mg PO Q6H PRN PRN Reason: Pain, Mild (1-3) Morphine Sulfate (Morphine) 1 mg IVP Q4 PRN PRN Reason: Pain, severe (8-10) Pneumococcal Polyvalent Vaccine (Pneumovax 23 Vaccine) 0.5 ml IM .ONCE ONE Stop: 11/25/18 10:01 Sennosides (Senokot Tab) 8.6 mg PO DAILY [facility] Last Admin: 11/24/18 10:00 Dose: 8.6 mg - Labs Labs: 11/24/18 07:31 11/24/18 07:31 PT 14.2 SECONDS (9.7-12.2) H 11/22/18 19:34 INR 1.3 11/22/18 19:34 APTT 31.0 SECONDS (21-34) 11/22/18 19:34 Attending/Attestation - Attestation I have personally seen and examined this patient.: Yes I have fully participated in the care of the patient.: Yes I have reviewed all pertinent clinical information, including history, physical exam and plan: Yes Notes (Text): 11/24/18 10:18 I have seen and examined patient with GI fellow. No acute events overnight, she is seen resting in bed comfortably. She reports significant improvement in her abdominal pain and denies nausea, vomiting, fever/chills. Biliary drain output nearly 375 cc over past 24 hours. Review of vitals from today are normal. Gallstone pancreatitis Cholecystitis, s/p PTC drain placement Transaminitis - Clear liquid diet as tolerated - Continue with antibiotic therapy, await results of blood cultures - LFTs trending down, continue to monitor - Continue to monitor drain output - Follow up surgical recommendations regarding timing of cholecystectomy - Continue with IVF hydration, supportive care. Will continue to monitor patient clinical course.
[2018-11-24] MEDS: Piperacill/Tazo 3.375gm in Dex 3.375 GM/50 ML BAG IVPB SCH ×3 (09:59→20:23)
[2018-11-24 10:57] LABS: LIPASE 505 U/L (23-300)
--- NOTE | 2018-11-24 19:30 | PN ---
DATE: 11/24/2018 SUBJECTIVE: The patient is seen today, 11/24/2018. She is having much less abdominal pain. PHYSICAL EXAMINATION: VITAL SIGNS: Blood pressure is 105/64, temperature 98.3, respiratory rate 20, and pulse 83. HEENT: Pupils equal, reactive to light. Normal-appearing mucosa of the conjunctivae, oropharynx and nasal membrane mucosa. NECK: Supple. No JVD. No carotid bruit. No lymph node. No thyromegaly. CHEST AND LUNGS: Bilateral symmetrical expansion. Good air exchange. No rales. No rhonchi. CARDIOVASCULAR SYSTEM: PMI not localized. S1 and S2. No additional sounds. ABDOMEN: Normoactive bowel sounds. No tenderness. No organomegaly. No masses. Cholecystostomy tube in place. EXTREMITIES: No cyanosis. No clubbing. No edema. MOUNTER SMOKING PIPE: Alert, awake, oriented x2. No neurological deficit could be appreciated. ASSESSMENT: 1. Gallstone pancreatitis status post cholecystostomy. 2. Urinary tract infection. PLAN: Discussed with Dr. Scherer. The patient is for OR tomorrow for cholecystectomy. Rosa James MD
[2018-11-25] MEDS: Piperacill/Tazo 3.375gm in Dex 3.375 GM/50 ML BAG IVPB SCH ×5 (03:21→20:25)
[2018-11-25] MEDS ORDERED: Lactated Ringer's 1,000 ML IV SCH (06:15)
[2018-11-25 07:38] LABS: BASO % 0.4 % (0.0-2.0); EOS # 0.1 K/uL (0.0-0.7); EOS % 1.8 % (0.0-4.0); HEMOGLOBIN 11.2 g/dL (11.0-16.0); LYMPH # 0.8 K/uL (1.0-4.3); LYMPH % 14.4 % (20.0-40.0); MEAN CELL VOLUME 96.7 fL (81.0-99.0); MEAN CORPUSCULAR HEMOGLOBIN 33.7 pg (27.0-31.0); MEAN CORPUSCULAR HGB CONC 34.9 g/dL (33.0-37.0); MEAN PLATELET VOLUME 8.6 fL (7.2-11.7); MONO # 0.5 K/uL (0.0-0.8); MONO % 9.2 % (0.0-10.0); NEUT % 74.2 % (50.0-75.0); RBC 3.33 Mil/uL (3.80-5.20); WHITE BLOOD COUNT 5.3 K/uL (4.8-10.8)
[2018-11-25 07:58] LABS: INR 1.2; PROTHROMBIN TIME 13.1 SECONDS (9.7-12.2)
[2018-11-25 08:26] LABS: ALB/GLOB RATIO 1.3 (1.0-2.1); ALT/SGPT 56 U/L (9-52); AST/SGOT 37 U/L (14-36); BLOOD UREA NITROGEN 9 mg/dL (7-17); CALCIUM 8.6 mg/dl (8.6-10.4); GFR NON-AFRICAN AMERICAN > 60
[2018-11-25] MEDS ORDERED: Caffeine Citrated **INJ** 20 MG/ML IV ONE (08:59)
--- NOTE | 2018-11-25 09:48 | US ---
PROCEDURE: Date of procedure: 11/23/2018 Procedure: 1. Percutaneous Cholecystostomy tube placement Medications: Patient sedated by the interventional radiology nurse receiving 1 milligram Versed and 50 microgram fentanyl, 8 cubic centimeters 2 percent lidocaine HISTORY: Acute cholecystitis TECHNIQUE: Following informed consent the patient right abdomen was marked. The patient was placed supine on the interventional table and procedure time-out was called. Ultrasound showed distended gallbladder. At the patient sedated, the skin was anesthetized with 2 percent lidocaine. Under direct ultrasound guidance, a Motosmarty catheter was advanced percutaneously into the gallbladder. Upon return of bile, an 035 wire was advanced into the gallbladder and was coiled within the gallbladder. The tract was dilated to accommodate 8 Serbian drainage catheter which was formed within the gallbladder. Position of the catheter was confirmed with ultrasound. The catheter was secured to patient's skin and dressing applied. IMPRESSION: Ultrasound-guided percutaneous cholecystostomy tube placement.
[2018-11-25] MEDS ORDERED: Pneumococcal 23-Valent Vaccine IM ONE (10:00)
--- NOTE | 2018-11-25 10:08 | CP.PCM.PN ---
Subjective - Date & Time of Evaluation Date of Evaluation: 11/25/18 Time of Evaluation: 10:05 - Subjective Subjective: Patient is going for stress test, echocardiogram and possible lap gretel today. No acute overnight events. Afeb, HDS. GNR in bile on Zosyn. Objective - Vital Signs/Intake and Output Vital Signs (last 24 hours): Temp Pulse Resp BP Pulse Ox 98.1 F 81 20 147/75 95 11/25/18 08:21 11/25/18 08:21 11/25/18 08:21 11/25/18 08:21 11/25/18 08:21 Intake and Output: 11/25/18 11/25/18 06:59 18:59 Intake Total 50 Output Total 150 Balance -100 - Medications Medications: Current Medications Docusate Sodium (Colace) 100 mg PO BID [facility] Last Admin: 11/25/18 09:27 Dose: Not Given Piperacillin Sod/Tazobactam Sod (Zosyn 3.375 Gm Iv Premix) 3.375 gm in 50 mls @ 100 mls/hr IVPB Q6H [facility]; Protocol Last Admin: 11/25/18 03:21 Dose: 100 mls/hr Lactated Ringer's (Lactated Ringer's) 1,000 mls @ 100 mls/hr IV .Q10H [facility] Potassium Chloride (Potassium Chloride 20 Meq/100 Ml) 20 meq in 100 mls @ 50 mls/hr IVPB ONCE ONE Stop: 11/25/18 10:59 Ibuprofen (Motrin Tab) 400 mg PO Q6H PRN PRN Reason: Pain, Mild (1-3) Morphine Sulfate (Morphine) 1 mg IVP Q4 PRN PRN Reason: Pain, severe (8-10) Sennosides (Senokot Tab) 8.6 mg PO DAILY [facility] Last Admin: 11/25/18 09:28 Dose: Not Given - Labs Labs: 11/25/18 07:25 11/25/18 07:20 PT 13.1 SECONDS (9.7-12.2) H 11/25/18 07:25 INR 1.2 11/25/18 07:25 APTT 34.0 SECONDS (21-34) 11/25/18 07:25 - Constitutional Appears: Non-toxic, No Acute Distress - Eye Exam Eye Exam: EOMI, Normal appearance - ENT Exam ENT Exam: Mucous Membranes Moist, Normal Exam - Respiratory Exam Respiratory Exam: Clear to Ausculation Bilateral, NORMAL BREATHING PATTERN - Cardiovascular Exam Cardiovascular Exam: REGULAR RHYTHM, +S1, +S2 - GI/Abdominal Exam GI & Abdominal Exam: Soft, Normal Bowel Sounds. absent: Tenderness - Neurological Exam Neurological Exam: Alert, Awake, Oriented x3 - Psychiatric Exam Psychiatric exam: Normal Affect, Normal Mood - Skin Skin Exam: Dry, Normal Color Assessment and Plan - Assessment and Plan (Free Text) Assessment: #Acute gallstone pancreatitis #GNR in bile PLAN: -CT, U/S reviewed. GB is distended with sludge and gallstones. CBD is normal, 0.6. -MRCP was negative for choledocolithiasis, normal caliber CBD. -s/p perc cholecystostomy tube 11/23/18 -T. bili trending down -follow up bile cultures -No planned EUS/ERCP at this time. Recommend IOC during cholecystectomy. -Diet per surgery -Follow up surgical recs. Possible lap gretel today. -IVF per surgery. Case discussed with Dr. Mora, see attestation.
[2018-11-25] MEDS: Lactated Ringer's 1,000 ML IV SCH ×3 (11:48→18:50)
[2018-11-25] MEDS ORDERED: Midazolam 2 MG/2 ML VIAL ONE (12:55)
[2018-11-25] MEDS ORDERED: Propofol 10 mg/ml Inj (20 ML) ONE (12:55)
[2018-11-25] MEDS ORDERED: Lidocaine/Epinephrine 1% 1:100000 10 ML IJ ONE (13:47)
[2018-11-25] MEDS ORDERED: Potassium Chloride 20 mEq/15 ml LIQ UD PO ONE (14:00)
--- NOTE | 2018-11-25 14:05 | CP.PCM.PN ---
Subjective - Date & Time of Evaluation Date of Evaluation: 11/25/18 Time of Evaluation: 14:04 - Subjective Subjective: Patient scheduled for cholecystectomy today. Objective - Vital Signs/Intake and Output Vital Signs (last 24 hours): Temp Pulse Resp BP Pulse Ox 98.1 F 81 20 147/75 95 11/25/18 08:21 11/25/18 08:21 11/25/18 08:21 11/25/18 08:21 11/25/18 08:21 Intake and Output: 11/25/18 11/25/18 06:59 18:59 Intake Total 50 Output Total 150 Balance -100 - Medications Medications: Current Medications Docusate Sodium (Colace) 100 mg PO BID [facility] Last Admin: 11/25/18 09:27 Dose: Not Given Piperacillin Sod/Tazobactam Sod (Zosyn 3.375 Gm Iv Premix) 3.375 gm in 50 mls @ 100 mls/hr IVPB Q6H [facility]; Protocol Last Admin: 11/25/18 11:49 Dose: 100 mls/hr Lactated Ringer's (Lactated Ringer's) 1,000 mls @ 100 mls/hr IV .Q10H [facility] Last Admin: 11/25/18 11:48 Dose: 100 mls/hr Ibuprofen (Motrin Tab) 400 mg PO Q6H PRN PRN Reason: Pain, Mild (1-3) Morphine Sulfate (Morphine) 1 mg IVP Q4 PRN PRN Reason: Pain, severe (8-10) Sennosides (Senokot Tab) 8.6 mg PO DAILY [facility] Last Admin: 11/25/18 09:28 Dose: Not Given - Labs Labs: 11/25/18 07:25 11/25/18 07:20 PT 13.1 SECONDS (9.7-12.2) H 11/25/18 07:25 INR 1.2 11/25/18 07:25 APTT 34.0 SECONDS (21-34) 11/25/18 07:25 Assessment and Plan - Assessment and Plan (Free Text) Assessment: Gallstone pancreatitis Acute cholecystitis s/p PTC drain placement Transaminitis Plan: - NPO - Continue with antibiotic therapy - LFTs trending down, continue to monitor - Follow up surgical recommendations, scheduled for cholecystectomy today - No further planned GI intervention, will sign off case. Please reconsult as necessary, thank you.
--- NOTE | 2018-11-25 14:08 | CP.PCM.PN ---
Subjective - Date & Time of Evaluation Date of Evaluation: 11/25/18 Time of Evaluation: 14:05 - Subjective Subjective: Patient s/p ECHO and Stress test Stress test: No reversible ischemia ECHO: Normal EF, No major valvular issues but has severe Pulmonary HTN (PASP 61mmHg) Assessed as moderate to high risk due to Severe Pulmonary HTN If benefit outweighs the risk please proceed with the surgery after d/w the patient and the family Thank you Will follow Objective - Vital Signs/Intake and Output Vital Signs (last 24 hours): Temp Pulse Resp BP Pulse Ox 98.1 F 81 20 147/75 95 11/25/18 08:21 11/25/18 08:21 11/25/18 08:21 11/25/18 08:21 11/25/18 08:21 Intake and Output: 11/25/18 11/25/18 06:59 18:59 Intake Total 50 Output Total 150 Balance -100 - Medications Medications: Current Medications Docusate Sodium (Colace) 100 mg PO BID [facility] Last Admin: 11/25/18 09:27 Dose: Not Given Piperacillin Sod/Tazobactam Sod (Zosyn 3.375 Gm Iv Premix) 3.375 gm in 50 mls @ 100 mls/hr IVPB Q6H [facility]; Protocol Last Admin: 11/25/18 11:49 Dose: 100 mls/hr Lactated Ringer's (Lactated Ringer's) 1,000 mls @ 100 mls/hr IV .Q10H [facility] Last Admin: 11/25/18 11:48 Dose: 100 mls/hr Ibuprofen (Motrin Tab) 400 mg PO Q6H PRN PRN Reason: Pain, Mild (1-3) Morphine Sulfate (Morphine) 1 mg IVP Q4 PRN PRN Reason: Pain, severe (8-10) Sennosides (Senokot Tab) 8.6 mg PO DAILY [facility] Last Admin: 11/25/18 09:28 Dose: Not Given - Labs Labs: 11/25/18 07:25 11/25/18 07:20 PT 13.1 SECONDS (9.7-12.2) H 11/25/18 07:25 INR 1.2 11/25/18 07:25 APTT 34.0 SECONDS (21-34) 11/25/18 07:25
--- NOTE | 2018-11-25 14:11 | CP.PCM.PN ---
Subjective - Date & Time of Evaluation Date of Evaluation: 11/25/18 Time of Evaluation: 14:08 - Subjective Subjective: HPBS- Dr. Scherer Patient underwent stress test today. After evaluation by Dr. Fox Cardiology; stress test is normal, however patient is deemed moderate to high risk. Dr. Scherer and Dr. Fox discussed over phone. Risks and benefits discussed with patient and family at bedside. PGY2 Objective - Vital Signs/Intake and Output Vital Signs (last 24 hours): Temp Pulse Resp BP Pulse Ox 98.1 F 81 20 147/75 95 11/25/18 08:21 11/25/18 08:21 11/25/18 08:21 11/25/18 08:21 11/25/18 08:21 Intake and Output: 11/25/18 11/25/18 06:59 18:59 Intake Total 50 Output Total 150 Balance -100 - Medications Medications: Current Medications Docusate Sodium (Colace) 100 mg PO BID [facility] Last Admin: 11/25/18 09:27 Dose: Not Given Piperacillin Sod/Tazobactam Sod (Zosyn 3.375 Gm Iv Premix) 3.375 gm in 50 mls @ 100 mls/hr IVPB Q6H [facility]; Protocol Last Admin: 11/25/18 11:49 Dose: 100 mls/hr Lactated Ringer's (Lactated Ringer's) 1,000 mls @ 100 mls/hr IV .Q10H [facility] Last Admin: 11/25/18 11:48 Dose: 100 mls/hr Ibuprofen (Motrin Tab) 400 mg PO Q6H PRN PRN Reason: Pain, Mild (1-3) Morphine Sulfate (Morphine) 1 mg IVP Q4 PRN PRN Reason: Pain, severe (8-10) Sennosides (Senokot Tab) 8.6 mg PO DAILY [facility] Last Admin: 11/25/18 09:28 Dose: Not Given - Labs Labs: 11/25/18 07:25 11/25/18 07:20 PT 13.1 SECONDS (9.7-12.2) H 11/25/18 07:25 INR 1.2 11/25/18 07:25 APTT 34.0 SECONDS (21-34) 11/25/18 07:25
[2018-11-25] MEDS ORDERED: Iohexol 240 (50 ml) ONE (14:49)
--- NOTE | 2018-11-25 15:14 | PN ---
DATE: 11/25/2018 SUBJECTIVE: The patient is seen today, 11/25/2018. She is for stress test prior to surgery. PHYSICAL EXAMINATION: VITAL SIGNS: Blood pressure 147/75, temperature 98.1, respiratory rate 20, and pulse 81. HEENT: Pupils equal, reactive to light. Normal-appearing mucosa of the conjunctivae, oropharynx, and nasal membrane mucosa. NECK: Supple. No JVD, no carotid bruit. No lymph node. No thyromegaly. CHEST AND LUNGS: Bilateral symmetrical expansion. Good air exchange. No rales, no rhonchi. CARDIOVASCULAR SYSTEM: PMI not localized. S1, S2. No additional sounds. ABDOMEN: Normoactive bowel sounds. No tenderness, no organomegaly. No masses. EXTREMITIES: No cyanosis, no clubbing, no edema. CENTRAL NERVOUS SYSTEM: Alert, awake, oriented x2. No neurological deficit could be appreciated. ASSESSMENT: Gallstone pancreatitis. PLAN: The patient is for stress test, for cardiac clearance before laparoscopic cholecystectomy which is scheduled by Dr. Scherer to be done after cardiology clearance. Rosa James MD
--- NOTE | 2018-11-25 15:34 | CARD ---
APPROVED REPORT Date of service: 11/25/2018 EXAM: Two-dimensional and M-mode echocardiogram with Doppler and color Doppler. INDICATION Pre-op 2D DIMENSIONS IVSd1.0 (0.7-1.1cm)Aortic Root (2D)2.7 (2.0-3.7cm) LVDd4.7 (3.9-5.9cm)PWd0.7 (0.7-1.1cm) LA [id number] (18-58mL)LVDs2.8 (2.5-4.0cm) FS (%) 40.5 %LVEF (%)71.3 (>50%) LVEF (Larsen's)60 %IVC0.00 cm M-Mode DIMENSIONS Left Atrium (MM)3.78 (2.5-4.0cm)IVSd0.72 (0.7-1.1cm) Aortic Root2.78 (2.2-3.7cm)LVDd5.73 (4.0-5.6cm) Aortic Cusp Exc.1.70 (1.5-2.0cm)PWd0.91 (0.7-1.1cm) FS (%) 38 %LVDs3.58 (2.0-3.8cm) TAPSE21.48 cmLVEF (%)67 (>50%) Mitral Valve MV E Agxbsslq77.8cm/sMV A Rmjcylvn99.2cm/sE/A ratio0.9 QLUJ134.29 cm/s TDI Lateral E' Peak V9.51cm/sMedial E' Peak V7.06cm/sE/Lateral E'8.1 E/Medial E'10.9 Tricuspid Valve TR Peak Fvneuffi021mj/sRAP [id number] Peak Gr.51mmHg [id number] LEFT VENTRICLE The left ventricle is normal size. There is normal left ventricular wall thickness. The left ventricular systolic function is normal. Biplane Ejection Fraction - 55% There is normal LV segmental wall motion. Transmitral Doppler flow pattern is Grade I-abnormal relaxation pattern. Normal left atrial pressure by Tissue Doppler. RIGHT VENTRICLE The right ventricle is normal size. There is normal right ventricular wall thickness. The right ventricular systolic function is normal. ATRIA The left atrial index is mildly increased. The right atrium is mildly dilated. The interatrial septum is intact with no evidence for an atrial septal defect. AORTIC VALVE The aortic valve is normal in structure. No aortic regurgitation is present. There is no aortic valvular stenosis. MITRAL VALVE The mitral valve is normal in structure. Mitral regurgitation is mild. TRICUSPID VALVE The tricuspid valve is normal in structure. There is moderate tricuspid regurgitation. Right ventricular systolic pressure is estimated at - 56 mmHg. There is moderate-severe pulmonary hypertension. PULMONIC VALVE The pulmonary valve is normal in structure. There is trace pulmonic valvular regurgitation. GREAT VESSELS The aortic root is normal in size. The IVC is normal in size and collapses >50% with inspiration. PERICARDIAL EFFUSION There is no pericardial effusion. <Conclusion> The left ventricular systolic function is normal. Biplane Ejection Fraction - 55%. There is normal LV segmental wall motion. Grade I diastolic dysfunction - abnormal relaxation pattern. Normal left atrial pressure by Tissue Doppler. Normal right ventricle size and function. Mild bi-atrial enlargement. Mild mitral regurgitation. There is moderate tricuspid regurgitation. Right ventricular systolic pressure is estimated at - 56 mmHg compatible with moderate to severe pulmonary hypertension. There is no pericardial effusion.
[2018-11-25] MEDS ORDERED: Neostigmine 1:1000 (1 mg/ml) Inj ONE (16:36)
--- NOTE | 2018-11-25 16:52 | PCM.SURG1 ---
Surgeon's Initial Post Op Note - Surgeon's Notes Surgeon: Dr. Scherer Lay Out Carpenter: Andrew PGY4, PGY2 Type of Anesthesia: General Endo Pre-Operative Diagnosis: Acute Cholecystitis Operative Findings: Inflammed Gallbladder, Dialated CBD. Calot node dialated. Old Hematoma from Katia tube. For Details see op note. Post-Operative Diagnosis: Acute on Chronic Cholecystitis Operation Performed: 1. Laparoscopic Cholecystectomy. 2. Intra-operative Cholangiogram Specimen/Specimens Removed: 1. Gallbladder & Calot Lymph node Estimated Blood Loss: EBL {In ML}: 50 Drains Used: No Drains Post-Op Condition: Fair Date of Surgery/Procedure: 11/25/18 Time of Surgery/Procedure: 16:52
[2018-11-25] MEDS ORDERED: HYDROmorphone 0.5 mg/0.5 ml ISec IVP PRN (16:53)
--- NOTE | 2018-11-25 18:13 | RAD ---
Date of service: 11/25/2018 PROCEDURE: Intraoperative Fluoroscopy. HISTORY: CHOLELITHIASIS FINDINGS: Fluoroscopic assistance was provided for cholangiogram. Please refer to the operative report from [facility]. Total fluoroscopic time (continuous mode) utilized during the procedure 55.2 seconds. Total exam DLP: 7.22 (mGy).
--- NOTE | 2018-11-25 22:29 | CP.PCM.CON ---
History of Present Illness - History of Present Illness History of Present Illness: CC: Pre Op cardiac risk assessment Patient presents to the ED c/o sudden onset RUQ abdominal pain associated with some nausea. Patient states pain is sharp, stabbing, non radiating. Patient denies fever, chills, diarrhea, rash, dysuria, hematuria, weakness, numbness. Chief Complaint (Nursing): Abdominal Pain History Per: Patient Onset/Duration Of Symptoms: Sudden Onset Current Symptoms Are (Timing): Still Present Context: Other Severity: Severe Pain Scale Rating Of: 7 Location Of Pain/Discomfort: RUQ, Epigastric Radiation Of Pain To:: None Quality Of Discomfort: Sharp, Stabbing Associated Symptoms: Nausea. denies: Vomiting, Diarrhea, Urinary Symptoms Alleviating Factors: None Last Bowel Movement: Today Recent travel outside of the [place]: No Additional History Per: Patient Abnormal Vaginal Bleeding: No - Medical History PMH: No Chronic Diseases Surgical History: No Surg Hx Family History: States: Unknown Family Hx - Social History Hx Alcohol Use: No Hx Substance Use: No - Immunization History Hx Tetanus Toxoid Vaccination: No Hx Influenza Vaccination: No Hx Pneumococcal Vaccination: No Review Of Systems Constitutional: Negative for: Fever, Chills Cardiovascular: Negative for: Chest Pain Respiratory: Negative for: Shortness of Breath Gastrointestinal: Positive for: Nausea, Abdominal Pain. Negative for: Vomiting, Diarrhea Genitourinary: Negative for: Dysuria Musculoskeletal: Negative for: Back Pain Skin: Negative for: Rash Neurological: Negative for: Weakness, Numbness Physical Exam - Physical Exam Appears: Non-toxic, No Acute Distress Skin: Warm, Dry Head: Normacephalic Eye(s): bilateral: Normal Inspection Oral Mucosa: Moist Neck: Supple Chest: Symmetrical Cardiovascular: Rhythm Regular Respiratory: No Rales, No Rhonchi, No Wheezing Gastrointestinal/Abdominal: Soft, Tenderness (RUQ), No Guarding, No Rebound Back: No CVA Tenderness Extremity: No Tenderness Extremity: Bilateral: Atraumatic, Normal Color And Temperature, Normal ROM Pulses: Left Dorsalis Pedis: Normal, Right Dorsalis Pedis: Normal Neurological/Psych: Oriented x3, Normal Speech, Normal Cognition Gait: Steady Past Patient History - Infectious Disease Hx of Infectious Diseases: None - Past Medical History & Family History Past Medical History?: Yes - Past Social History Smoking Status: Never Smoked - CARDIAC Hx Hypotension: Yes - PULMONARY Hx Respiratory Disorders: No - NEUROLOGICAL Hx Neurological Disorder: No - HEENT Hx HEENT Problems: No - RENAL Hx Chronic Kidney Disease: No - ENDOCRINE/METABOLIC Hx Endocrine Disorders: No - HEMATOLOGICAL/ONCOLOGICAL Hx Blood Disorders: No - INTEGUMENTARY Hx Dermatological Problems: No - MUSCULOSKELETAL/RHEUMATOLOGICAL Hx Musculoskeletal Disorders: No Hx Falls: No - GASTROINTESTINAL Hx Gastrointestinal Disorders: No - GENITOURINARY/GYNECOLOGICAL Hx Genitourinary Disorders: No - PSYCHIATRIC Hx Substance Use: No - SURGICAL HISTORY Hx Surgeries: No - ANESTHESIA Hx Anesthesia: No Hx Anesthesia Reactions: No Meds Allergies/Adverse Reactions: Allergies Allergy/AdvReac Type Severity Reaction Status Date / Time No Known Allergies Allergy Verified 06/28/15 15:33 - Medications Medications: Current Medications Docusate Sodium (Colace) 100 mg PO BID [facility] Last Admin: 11/25/18 18:47 Dose: 100 mg Piperacillin Sod/Tazobactam Sod (Zosyn 3.375 Gm Iv Premix) 3.375 gm in 50 mls @ 100 mls/hr IVPB Q6H [facility]CLUD[facility]; Protocol Last Admin: 11/25/18 20:25 Dose: 100 mls/hr Lactated Ringer's (Lactated Ringer's) 1,000 mls @ 100 mls/hr IV .Q10H [facility] Last Admin: 11/25/18 18:30 Dose: Not Given Lactated Ringer's (Lactated Ringer's) 1,000 mls @ 100 mls/hr IV .Q10H [facility] Last Admin: 11/25/18 18:50 Dose: 100 mls/hr Ibuprofen (Motrin Tab) 400 mg PO Q6H PRN PRN Reason: Pain, Mild (1-3) Morphine Sulfate (Morphine) 1 mg IVP Q4 PRN PRN Reason: Pain, severe (8-10) Sennosides (Senokot Tab) 8.6 mg PO DAILY COUNT [facility]CLUD[facility] Last Admin: 11/25/18 09:28 Dose: Not Given Results - Vital Signs Recent Vital Signs: Last Vital Signs Temp 99.1 F 11/25/18 18:20 Pulse 83 11/25/18 18:20 Resp 18 11/25/18 18:20 BP 102/52 L 11/25/18 18:20 Pulse Ox 98 11/25/18 18:20 - Labs Result Diagrams: 11/25/18 07:25 11/25/18 07:20 Labs: Laboratory Results - last 24 hr 11/25/18 11/25/18 11/25/18 07:20 07:25 07:25 WBC 5.3 RBC 3.33 L Hgb 11.2 Hct 32.2 L MCV 96.7 MCH 33.7 H MCHC 34.9 RDW 13.0 Plt Count 183 MPV 8.6 Neut % (Auto) 74.2 Lymph % (Auto) 14.4 L [place] % (Auto) 9.2 Eos % (Auto) 1.8 Baso % (Auto) 0.4 Neut # (Auto) 4.0 Lymph # (Auto) 0.8 L [place] # (Auto) 0.5 Eos # (Auto) 0.1 Baso # (Auto) 0.0 PT 13.1 H INR 1.2 APTT 34.0 Sodium 141 Potassium 3.5 L Chloride 107 Carbon Dioxide 26 Anion Gap 11 BUN 9 Creatinine 0.8 Est GFR ( Amer) > 60 Est GFR (Non-Af Amer) > 60 Random Glucose 83 Calcium 8.6 Total Bilirubin 2.7 H AST 37 H D ALT 56 H D Alkaline Phosphatase 138 H Total Protein 5.5 L Albumin 3.0 L Globulin 2.4 Albumin/Globulin Ratio 1.3 Assessment & Plan - Assessment and Plan (Free Text) Assessment: 73 F with hx of exertional dyspnea No prior cardiac w/u Recommend ECHO and stress test prior to surgery
[2018-11-26 00:15] VITALS: RESP 20
[2018-11-26] MEDS: Lactated Ringer's 1,000 ML IV SCH ×5 (02:37→23:00)
[2018-11-26] MEDS: Piperacill/Tazo 3.375gm in Dex 3.375 GM/50 ML BAG IVPB SCH ×4 (02:59→21:39)
--- NOTE | 2018-11-26 06:12 | CP.PCM.PN ---
Subjective - Date & Time of Evaluation Date of Evaluation: 11/26/18 Time of Evaluation: 08:43 - Subjective Subjective: General Surgery Note for Dr. Scherer Patient seen and examined at bedside. No acute event overnight. Patient states pain is controlled. Denies fever/chills or nausea/vomiting. She is tolerating diet. Admits to flatus. Patient has been OOB. Objective - Vital Signs/Intake and Output Vital Signs (last 24 hours): Temp Pulse Resp BP Pulse Ox 98.8 F 81 20 125/74 100 11/26/18 00:00 11/26/18 00:00 11/26/18 00:00 11/26/18 00:00 11/26/18 00:00 Intake and Output: 11/25/18 11/26/18 18:59 06:59 Intake Total 900 800 Output Total 50 Balance 850 800 - Medications Medications: Current Medications Docusate Sodium (Colace) 100 mg PO BID [facility] Last Admin: 11/25/18 18:47 Dose: 100 mg Piperacillin Sod/Tazobactam Sod (Zosyn 3.375 Gm Iv Premix) 3.375 gm in 50 mls @ 100 mls/hr IVPB Q6H [facility]; Protocol Last Admin: 11/26/18 02:59 Dose: 100 mls/hr Lactated Ringer's (Lactated Ringer's) 1,000 mls @ 100 mls/hr IV .Q10H [facility] Last Admin: 11/26/18 04:17 Dose: Not Given Lactated Ringer's (Lactated Ringer's) 1,000 mls @ 100 mls/hr IV .Q10H [facility] Last Admin: 11/26/18 02:37 Dose: Not Given Ibuprofen (Motrin Tab) 400 mg PO Q6H PRN PRN Reason: Pain, Mild (1-3) Morphine Sulfate (Morphine) 1 mg IVP Q4 PRN PRN Reason: Pain, severe (8-10) Sennosides (Senokot Tab) 8.6 mg PO DAILY [facility] Last Admin: 11/25/18 09:28 Dose: Not Given - Labs Labs: 11/25/18 07:25 11/25/18 07:20 PT 13.1 SECONDS (9.7-12.2) H 11/25/18 07:25 INR 1.2 11/25/18 07:25 APTT 34.0 SECONDS (21-34) 11/25/18 07:25 - Constitutional Appears: No Acute Distress - Head Exam Head Exam: ATRAUMATIC, NORMOCEPHALIC - Eye Exam Eye Exam: EOMI, Normal appearance Pupil Exam: PERRL - ENT Exam ENT Exam: Mucous Membranes Moist - Respiratory Exam Respiratory Exam: NORMAL BREATHING PATTERN - Cardiovascular Exam Cardiovascular Exam: REGULAR RHYTHM - GI/Abdominal Exam GI & Abdominal Exam: Soft, Tenderness (mild RUQ), Normal Bowel Sounds. absent: Distended, Firm, Guarding, Rigid, Rebound - Back Exam Back Exam: absent: CVA tenderness (L), CVA tenderness (R) - Neurological Exam Neurological Exam: Alert, Awake, Oriented x3 - Psychiatric Exam Psychiatric exam: Normal Affect, Normal Mood - Skin Skin Exam: Dry, Intact, Warm Assessment and Plan - Assessment and Plan (Free Text) Assessment: 73 F who presents with gallstone pancreatitis and cholecystitis s/p laparoscopic cholecystectomy POD#1 Plan: -Reg diet -Pain control -IS/OOB/Ambulation -Anti-emetics PRN -Further recs as per Dr. Ellington PGY2
[2018-11-26 07:15] LABS: ALB/GLOB RATIO 1.1 (1.0-2.1); ALT/SGPT 59 U/L (9-52); AST/SGOT 41 U/L (14-36); BLOOD UREA NITROGEN 8 mg/dL (7-17); CALCIUM 8.5 mg/dl (8.6-10.4); GFR NON-AFRICAN AMERICAN > 60
[2018-11-26 07:48] LABS: BASO % 0.4 % (0.0-2.0); EOS # 0.1 K/uL (0.0-0.7); EOS % 1.3 % (0.0-4.0); HEMOGLOBIN 11.3 g/dL (11.0-16.0); LYMPH # 0.7 K/uL (1.0-4.3); LYMPH % 11.6 % (20.0-40.0); MEAN CELL VOLUME 96.8 fL (81.0-99.0); MEAN CORPUSCULAR HEMOGLOBIN 33.1 pg (27.0-31.0); MEAN CORPUSCULAR HGB CONC 34.2 g/dL (33.0-37.0); MEAN PLATELET VOLUME 8.2 fL (7.2-11.7); MONO # 0.6 K/uL (0.0-0.8); MONO % 9.5 % (0.0-10.0); NEUT # 4.8 K/uL (1.8-7.0); NEUT % 77.2 % (50.0-75.0); RBC 3.41 Mil/uL (3.80-5.20); WHITE BLOOD COUNT 6.2 K/uL (4.8-10.8)
--- NOTE | 2018-11-26 12:51 | PN ---
DATE: 11/26/2018 SUBJECTIVE: The patient is seen today, 11/26/2018, postoperative day #1. PHYSICAL EXAMINATION: VITAL SIGNS: Blood pressure 126/71, temperature 98.8, respiratory rate 20 and pulse 72. HEENT: Pupils equal, reactive to light. Normal-appearing mucosa of the conjunctivae, oropharynx and nasal membrane mucosa. NECK: Supple. No JVD, no carotid bruit. No lymph node. No thyromegaly. CHEST AND LUNGS: Bilateral symmetrical expansion. Good air exchange. No rales, no rhonchi. CARDIOVASCULAR: PMI not localized. S1, S2. No additional sounds. ABDOMEN: Multiple small incisions at the site of the laparoscopic cholecystectomy with appropriate tenderness at the site of surgical wounds. EXTREMITIES: No cyanosis, no clubbing, no edema. CENTRAL NERVOUS SYSTEM: Alert, awake, oriented x2. No neurological deficit could be appreciated. ASSESSMENT: Gallstone pancreatitis, status post cholecystectomy, acute cholecystitis with infected bile with Escherichia coli, sensitive to Zosyn. PLAN: Continue Zosyn for two more days and advance diet as tolerated. Follow surgical recommendations. Physical therapy and ambulation. Rosa James MD
[2018-11-27] MEDS: Lactated Ringer's 1,000 ML IV SCH ×4 (00:30→09:45)
[2018-11-27] MEDS: Piperacill/Tazo 3.375gm in Dex 3.375 GM/50 ML BAG IVPB SCH ×4 (02:31→21:17)
--- NOTE | 2018-11-27 04:16 | OP ---
PROCEDURE DATE: 11/25/2018 PREOPERATIVE DIAGNOSES: 1. Gallstone pancreatitis. 2. Acute cholecystitis. POSTOPERATIVE DIAGNOSES: 1. Gallstone pancreatitis. 2. Acute cholecystitis. PROCEDURE: 1. Laparoscopic cholecystectomy. 2. Intraoperative cholangiogram. SURGEON: Fortino Scherer MD ASSISTANTS: 1. Triston Morales DO, PGY-4 2. Ethan Butler DO, PGY-2 ANESTHESIA: General. ESTIMATED BLOOD LOSS: 50 mL. SPECIMEN: Gallbladder and Calot lymph node. INDICATIONS FOR SURGERY: This is a 73-year-old female, who presented to [facility] with right upper quadrant pain. The patient was found to have gallstone pancreatitis and a distended gallbladder. Subsequently, a cholecystostomy tube was placed to help drain the gallbladder. Leukocytosis and T bili have improved significantly. Decision was then made to undergo a cholecystectomy. Risks and benefits were explained to the patient and family and an agreement was made for surgical intervention. DESCRIPTION OF PROCEDURE: The patient was brought into the operating suite and placed in supine position. General anesthesia was induced. Endotracheal tube was then placed, confirming placement with end-tidal CO2. EKG leads were hooked up. A time-out was taken verifying correct patient and procedure, site, and laterality. An OG tube was placed. The abdomen was prepped and draped in the usual sterile fashion using chlorhexidine. A skin incision was made in a natural skin line below the umbilicus where a 5-mm port entry was used using the Veress needle technique. The fascia was elevated and the Veress needle was then inserted. Proper position was confirmed by aspiration and saline flush meniscus test. CO2 was then hooked up and opening pressure was 2 mmHg. The abdomen was then insufflated to 12-15 mmHg with carbon dioxide. The patient tolerated the insufflation well. Using the Visiport technique, a 5-mm 30-degree scope was then used to enter the abdomen. The laparoscope was then inserted and the abdomen was inspected. No injuries from the initial trocar placement was noted. Additional trocars were inserted at the following locations: A 10-mm trocar at the right epigastrium and two 5-mm trocars along the right costal margin and no injuries were noted during the trocar placements. The abdomen was then inspected and no other abnormalities were noted. The table was then placed in reverse Trendelenburg with right side up. Extensive filmy adhesions between the gallbladder and the omentum were dissected and removed from the dome of the gallbladder. The left lobe of the liver, which appeared to be healthy, was then positioned away from the operative visual field. The dome of the gallbladder was then grasped with an atraumatic grasper and retracted over the liver. The infundibulum was then also grasped with atraumatic grasper and was retracted towards the right lower quadrant. This maneuver exposed Calot's triangle. Extensive dissection was required to be made due to the extensive inflammation of the gallbladder. The peritoneum overlying the gallbladder was then incised and the cystic duct and cystic artery were then identified and circumferentially dissected. A clip was placed on the cystic duct to close the neck of the gallbladder. A patricia was made in the cystic duct and a cholangiogram catheter was then threaded. Cholangiogram was obtained and showed good flow of bile into the duodenum and intact biliary tree and absence of any filling defects. The cystic duct and cystic artery were then doubly clipped and divided close to the gallbladder. At this time, Calot's node was noted to be enlarged and re-insured that we will take the lymph node with us during the dissection. The gallbladder was then dissected from its peritoneal attachments using electrocautery. Hemostasis was checked and contained all stones and was removed using an endoscopic retrieval bag and pulled through the subxiphoid ports. Close inspection was taken to the liver bed. Hemostasis was appropriately achieved using electrocautery and a Surgicel was placed in the gallbladder fossa. Just prior to the removal of the gallbladder, the cholangiogram catheter was then cut as close to the gallbladder as possible and the catheter was removed under direct visualization outside of the body. There was noted to be no foreign objects were left in the body. Excessive irrigation was used and the fluid from the Morison's pouch was noted to be clear. There was no further evidence of bleeding from the gallbladder fossa or cystic artery or any leakage of bile from the cystic duct stump. Secondary trocars were then removed under direct visualization. No bleeding was noted from the trocar sites. The laparoscope was then withdrawn and the umbilical trocar was removed. The abdomen was allowed to collapse. The fascia of the 10-mm trocar site in the epigastrium was then closed in a single interrupted fashion with 0-Vicryl. The skin was then closed with subcuticular sutures of 4-0 Monocryl and Dermabond was placed on top as sterile dressing. The OG tube was removed. The patient was awakened and extubated and taken to the postanesthesia care unit in stable condition. All counts were correct at the end of the case. Dr. Scherer was present and participated in all aspects of the case. Ethan Butler DO Fortino Scherer M.D. MTDGregg
[2018-11-27 08:01] LABS: ALB/GLOB RATIO 1.2 (1.0-2.1); ALT/SGPT 46 U/L (9-52); AST/SGOT 29 U/L (14-36); BLOOD UREA NITROGEN 9 mg/dL (7-17); CALCIUM 8.6 mg/dl (8.6-10.4); GFR NON-AFRICAN AMERICAN > 60
[2018-11-27 08:10] LABS: BASO % 0.4 % (0.0-2.0); EOS # 0.2 K/uL (0.0-0.7); EOS % 2.9 % (0.0-4.0); HEMOGLOBIN 10.9 g/dL (11.0-16.0); LYMPH % 16.2 % (20.0-40.0); MEAN CELL VOLUME 96.2 fL (81.0-99.0); MEAN CORPUSCULAR HEMOGLOBIN 33.7 pg (27.0-31.0); MONO # 0.7 K/uL (0.0-0.8); MONO % 10.7 % (0.0-10.0); NEUT # 4.4 K/uL (1.8-7.0); NEUT % 69.8 % (50.0-75.0); RBC 3.23 Mil/uL (3.80-5.20); RED CELL DISTRIBUTION WIDTH 12.7 % (11.5-14.5); WHITE BLOOD COUNT 6.3 K/uL (4.8-10.8)
--- NOTE | 2018-11-27 09:47 | CP.PCM.PN ---
Subjective - Date & Time of Evaluation Date of Evaluation: 11/26/18 Time of Evaluation: 19:10 - Subjective Subjective: Patient s/p Surgery POD # 0 No cardiac events noted Review Of Systems Constitutional: Negative for: Fever, Chills Cardiovascular: Negative for: Chest Pain Respiratory: Negative for: Shortness of Breath Gastrointestinal: Positive for: Nausea, Abdominal Pain. Negative for: Vomiting, Diarrhea Genitourinary: Negative for: Dysuria Musculoskeletal: Negative for: Back Pain Skin: Negative for: Rash Neurological: Negative for: Weakness, Numbness Physical Exam - Physical Exam Appears: Non-toxic, No Acute Distress Skin: Warm, Dry Head: Normacephalic Eye(s): bilateral: Normal Inspection Oral Mucosa: Moist Neck: Supple Chest: Symmetrical Cardiovascular: Rhythm Regular Respiratory: No Rales, No Rhonchi, No Wheezing Gastrointestinal/Abdominal: Soft, Tenderness (RUQ), No Guarding, No Rebound Back: No CVA Tenderness Extremity: No Tenderness Extremity: Bilateral: Atraumatic, Normal Color And Temperature, Normal ROM Pulses: Left Dorsalis Pedis: Normal, Right Dorsalis Pedis: Normal Neurological/Psych: Oriented x3, Normal Speech, Normal Cognition Gait: Steady Objective - Vital Signs/Intake and Output Vital Signs (last 24 hours): Temp Pulse Resp BP Pulse Ox 98.5 F 77 20 149/77 96 11/27/18 08:33 11/27/18 08:33 11/27/18 08:33 11/27/18 08:33 11/27/18 08:33 Intake and Output: 11/27/18 11/27/18 06:59 18:59 Intake Total 2030 Balance 2030 - Medications Medications: Current Medications Docusate Sodium (Colace) 100 mg PO BID [facility] Last Admin: 11/27/18 09:40 Dose: 100 mg Piperacillin Sod/Tazobactam Sod (Zosyn 3.375 Gm Iv Premix) 3.375 gm in 50 mls @ 100 mls/hr IVPB Q6H [facility]; Protocol Last Admin: 11/27/18 09:40 Dose: 100 mls/hr Lactated Ringer's (Lactated Ringer's) 1,000 mls @ 100 mls/hr IV .Q10H [facility] Last Admin: 11/27/18 02:29 Dose: 100 mls/hr Lactated Ringer's (Lactated Ringer's) 1,000 mls @ 100 mls/hr IV .Q10H [facility] Last Admin: 11/26/18 23:00 Dose: Not Given Ibuprofen (Motrin Tab) 400 mg PO Q6H PRN PRN Reason: Pain, Mild (1-3) Morphine Sulfate (Morphine) 1 mg IVP Q4 PRN PRN Reason: Pain, severe (8-10) Sennosides (Senokot Tab) 8.6 mg PO DAILY [facility] Last Admin: 11/27/18 09:40 Dose: 8.6 mg - Labs Labs: 11/27/18 07:35 11/27/18 07:35 PT 13.1 SECONDS (9.7-12.2) H 11/25/18 07:25 INR 1.2 11/25/18 07:25 APTT 34.0 SECONDS (21-34) 11/25/18 07:25 Assessment and Plan - Assessment and Plan (Free Text) Assessment: Patient s/p Gall bladder surgery No cardiac events noted Moderate to severe Pulmonary HTN-Medical management Normal EF Stress test normal Please re consult if my services required Thank you
--- NOTE | 2018-11-27 10:27 | CP.PCM.PN ---
Subjective - Date & Time of Evaluation Date of Evaluation: 11/27/18 Time of Evaluation: 08:30 - Subjective Subjective: Surgery Progress note- Dr. Scherer No acute events overnight. tolerating regular diet. Denies fevers chills chest pain. + OOB and ambulating Objective - Vital Signs/Intake and Output Vital Signs (last 24 hours): Temp Pulse Resp BP Pulse Ox 98.5 F 77 20 149/77 96 11/27/18 08:33 11/27/18 08:33 11/27/18 08:33 11/27/18 08:33 11/27/18 08:33 Intake and Output: 11/27/18 11/27/18 06:59 18:59 Intake Total 2030 Balance 2030 - Medications Medications: Current Medications Docusate Sodium (Colace) 100 mg PO BID [facility] Last Admin: 11/27/18 09:40 Dose: 100 mg Piperacillin Sod/Tazobactam Sod (Zosyn 3.375 Gm Iv Premix) 3.375 gm in 50 mls @ 100 mls/hr IVPB Q6H [facility]; Protocol Last Admin: 11/27/18 09:40 Dose: 100 mls/hr Lactated Ringer's (Lactated Ringer's) 1,000 mls @ 100 mls/hr IV .Q10H [facility] Last Admin: 11/27/18 09:44 Dose: Not Given Ibuprofen (Motrin Tab) 400 mg PO Q6H PRN PRN Reason: Pain, Mild (1-3) Morphine Sulfate (Morphine) 1 mg IVP Q4 PRN PRN Reason: Pain, severe (8-10) Sennosides (Senokot Tab) 8.6 mg PO DAILY [facility] Last Admin: 11/27/18 09:40 Dose: 8.6 mg - Labs Labs: 11/27/18 07:35 11/27/18 07:35 PT 13.1 SECONDS (9.7-12.2) H 11/25/18 07:25 INR 1.2 11/25/18 07:25 APTT 34.0 SECONDS (21-34) 11/25/18 07:25 - Constitutional Appears: Non-toxic, No Acute Distress - Eye Exam Eye Exam: EOMI - Respiratory Exam Respiratory Exam: NORMAL BREATHING PATTERN. absent: Accessory Muscle Use, Respiratory Distress - GI/Abdominal Exam GI & Abdominal Exam: Soft. absent: Distended, Firm, Guarding, Rigid, Tenderness Additional comments: Incisions C/D/I - Neurological Exam Neurological Exam: Alert, Awake, Oriented x3 - Psychiatric Exam Psychiatric exam: Normal Affect - Skin Skin Exam: Intact, Warm Assessment and Plan - Assessment and Plan (Free Text) Assessment: 73F s/p Lap Katia POD#2 Plan: - diet as tolerated - Cleared to shower - OOB and ambulate as tolerated - cleared for discharge from surgical stand point - further recs per Dr. Kapadia PGY2
--- NOTE | 2018-11-27 20:36 | PN ---
DATE: 11/27/2018 DAILY PROGRESS NOTE SUBJECTIVE: The patient is seen today, 11/27/2018. She is not in any cardiopulmonary distress. Currently on IV antibiotics. Postoperative day #2. PHYSICAL EXAMINATION: VITAL SIGNS: Blood pressure 149/77, temperature 98.5, respiratory rate 20, and pulse 77. HEENT: Pupils equal and reactive to light. Normal-appearing mucosa of the conjunctivae, oropharynx and nasal membrane mucosa. NECK: Supple. No JVD. No carotid bruit. No lymph nodes. No thyromegaly. CHEST AND LUNGS: Bilateral symmetrical expansion. Good air exchange. No rales. No rhonchi. CARDIOVASCULAR SYSTEM: PMI not localized. S1, S2. No additional sounds. ABDOMEN: Normoactive bowel sounds. No tenderness. No organomegaly. No masses. EXTREMITIES: No cyanosis, no clubbing, no edema. CENTRAL NERVOUS SYSTEM: Alert, awake, oriented x2. No neurological deficit could be appreciated. ASSESSMENT: Status post laparoscopic cholecystectomy, gallstone pancreatitis. PLAN: Continue current medications and IV antibiotics. The patient is stable. We will be discharging her home tomorrow. [facility] James MD
[2018-11-28 01:26] VITALS: O2SAT 98
[2018-11-28] MEDS: Piperacill/Tazo 3.375gm in Dex 3.375 GM/50 ML BAG IVPB SCH (03:05)
[2018-11-28 07:57] VITALS: BP 135/80; PULSE 75; TEMP 98
--- NOTE | 2018-11-28 11:46 | CP.PCM.PN ---
Subjective - Date & Time of Evaluation Date of Evaluation: 11/28/18 Time of Evaluation: 11:46 - Subjective Subjective: alert and orientedx3, denies sob or abdominal pains, NAD. Objective - Vital Signs/Intake and Output Vital Signs (last 24 hours): Temp Pulse Resp BP Pulse Ox 98 F 75 20 135/80 98 11/28/18 07:00 11/28/18 07:00 11/28/18 07:00 11/28/18 07:00 11/28/18 07:00 Intake and Output: 11/28/18 11/28/18 06:59 18:59 Intake Total 500 Balance 500 - Medications Medications: Current Medications Docusate Sodium (Colace) 100 mg PO BID [facility] Last Admin: 11/28/18 10:03 Dose: 100 mg Piperacillin Sod/Tazobactam Sod (Zosyn 3.375 Gm Iv Premix) 3.375 gm in 50 mls @ 100 mls/hr IVPB Q6H [facility]; Protocol Last Admin: 11/28/18 03:05 Dose: 100 mls/hr Ibuprofen (Motrin Tab) 400 mg PO Q6H PRN PRN Reason: Pain, Mild (1-3) Sennosides (Senokot Tab) 8.6 mg PO DAILY [facility] Last Admin: 11/28/18 10:03 Dose: 8.6 mg - Labs Labs: 11/27/18 07:35 11/27/18 07:35 PT 13.1 SECONDS (9.7-12.2) H 11/25/18 07:25 INR 1.2 11/25/18 07:25 APTT 34.0 SECONDS (21-34) 11/25/18 07:25 Assessment and Plan - Assessment and Plan (Free Text) Assessment: 73 YEAR OLD FEMALE S/P LAP LEON, seen and examined, alert and orientedx3, denies acute sabrina, tolerating diet. Cleared by surgery, discussed with DR James, plan to discharge home today. Advised to follow up in the office in 1 week.
[2018-11-28] MEDS ORDERED: Pneumococcal 23-Valent Vaccine IM ONE (12:28)
--- NOTE | 2018-11-29 04:39 | DS ---
REASON FOR ADMISSION: This is a 73-year-old female with no significant past medical history who was admitted for gallstone pancreatitis. COURSE OF HOSPITALIZATION: The patient was admitted to medical floor, and she was started on IV fluids. The patient had a GI consult done by Dr. Mora and surgical consult done by Dr. Scherer. The patient's symptoms were improving, and the patient underwent laparoscopic cholecystectomy after she initially had cholecystostomy. The patient's postoperative course was uneventful. The patient was kept on Zosyn during the stay of the hospital due to infected bile with E. coli. The patient was discharged with afebrile and asymptomatic. To follow up with Surgery and with Dr. James as an outpatient. FINAL DIAGNOSES: Gallstone pancreatitis, calculous cholecystitis, hypokalemia secondary to decreased oral intake. [facility] MD Jacob
--- NOTE | 2018-11-29 07:04 | CARD ---
APPROVED REPORT Date of service: 11/25/2018 Protocol: LEXISCAN Test Type: LEXISCAN STRESS Test Indications: PRE OP Medical History: CP Target HR: 145 bpm Resting ECG: NSR WITH LOW VOLTAGE LIMB LEADS Resting Heart Rate: 96 bpm Resting Blood Pressure: 128/80mmHg submaximum (85%): 123 bpm TEST SUMMARY WUGGRLZIOQXTGE68:01..1.0./.0. PREINFSNHYPERV.19:[id number]/80.0. INFUSIONDOSE 100:300.00.01.098/.0. CVINZENBY45:[id number]/80.0. PROCEDURE Pharmacologic stress testing was performed using 0.4mg per 5ml of regadenoson given intravenously over 7-10 seconds. POST EXERCISE Reason for Termination: Protocol Completed Target HR: No Max HR: 98 bpm 77% of Maximum Predicted HR: 145 bpm Exercise duration: 00:30 min:sec, 0 Stage Exercise capacity: 1.0METs Max Blood Pressure: 134/80mmHg Blood Pressure response to exercise: normal resting BP - appropriate response Heart Rate response to exercise: appropriate Chest Pain: No, none Angina index: 0 Arrhythmia: No, none ST Change: No, none Deviation: 0 mm INTERPRETATION Stress EKG Conclusion: NEGATIVE LEXISCAN STRESS TEST NORMAL BP RESPONSE TO LEXISCAN NUCLEAR STUDIES TO BE READ SEPARATELY EXAM: Myocardial Perfusion REST/STRESS Imaging Protocol The imaging protocol used to acquire images was Rest Tc-99m/stress Tc-99m 1 day Rest Spect myocardial perfusion imaging was performed in supine position 45 minutes following the injection of 13.1 mCi of Tc-99 Myoview. Gated Stress Spect was performed 45 minutes after intravenous 33.0 mCi Tc-99 Myoview injection. The images were gated to evaluate regional wall motion and calculate ventricular ejection fraction.Images were reconstructed using backfilter projection method in short horizontal and verticle long axis. Spect slices were generated. RESTING DATA EDV73.11sgDG8.90L/min ESV21.00mlMyocardial Yqrz602.00g Av. Heart Rate75.00bpm EF71.00% STRESS DATA EDV65.92eyLE4.90L/min ESV23.00mlMyocardial Itqw116.00g EF65.00% Regional WT score at stress:0.00 Regional WM score at stress:0.00 Summed WT score at stress:2.00 Av. Heart Rate91.00bpmSummed WM score at stress:4.00 LV Perf. Quant 17 Seg. SSS0.00 17 Seg. SRS0.00 17 Seg. SDS0.00 Stress Defect Extent (% LAD)0.00Rest Defect Extent (% LAD)0.00Rev. Defect Extent (% LAD)0.00 Stress Defect Extent (% LCX)0.00Rest Defect Extent (% LCX)0.00Rev. Defect Extent (% LCX)0.00 Stress Defect Extent (% RCA)0.00Rest Defect Extent (% RCA)0.00Rev. Defect Extent (% RCA)0.00 Stress Defect Extent (% HODA)0.00Rest Defect Extent (% HODA)0.00Rev. Defect Extent (% HODA)0.00 Other Information Quality:Good IMPRESSION Normal Myocardial Perfusion exercise stress study Left Ventricle LV Function:Left ventricle systolic function is normal. The Ejection Fraction is >70%. Metabolism/Perfusion There are no perfusion/metabolism defects. Conclusion 1. Normal Lexiscan Nuclear Stress test. Normal EF
== END 2018-11-28 12:58 | disposition home or self-care (01) | DRG 417 ==
LOC: C.ER 18:27 → C.9E 21:18 → C.3T 22:20
PROVIDERS: ADMIT Internal Medicine; ATTEND Internal Medicine
PROC: 0F9430Z Drainage of Gallbladder with Drainage Device, Percutaneous Approach (ICD-10-PCS; principal; 2018-11-23)
PROC: 0FT44ZZ Resection of Gallbladder, Percutaneous Endoscopic Approach (ICD-10-PCS; 2018-11-25)
PROC: BF0C1ZZ Plain Radiography of Hepatobiliary System, All using Low Osmolar Contrast (ICD-10-PCS; 2018-11-25)
DX: K80.12 Calculus of gallbladder with acute and chronic cholecystitis without obstruction (principal); K85.10 Biliary acute pancreatitis without necrosis or infection; N39.0 Urinary tract infection, site not specified; I27.20 Pulmonary hypertension, unspecified; E87.6 Hypokalemia